=== PATIENT | female | born 1995 | race African-American/Black ===

== ENCOUNTER 2021-08-27 23:33 | Outpatient (CLI) | payer OTHER | END 2021-08-27 23:34 | disposition EMS.NT | LOC: EMS 23:33 | DX: O99.412 Diseases of the circulatory system complicating pregnancy, second trimester (principal); Z3A.20 20 weeks gestation of pregnancy ==

== ENCOUNTER 2021-08-28 00:43 | Outpatient (CLI) | payer OTHER ==
[2021-08-28 01:10] VITALS: BP 119/71
--- NOTE | 2021-08-28 01:40 | PROVIDER PROGRESS NOTE ---
- HPI Chief Complaint: Other (Heart racing for 30 minute. Patient states rom heart was racing and she was concerned so they called an ambulance to bring her to the hospital.) Current : Vital Signs Temperature 98.2 F 08/28/21 00:43 Heart Rate 72 08/28/21 00:43 Respiratory Rate 20 08/28/21 00:43 Blood Pressure 134/89 H 08/28/21 00:43 O2 Saturation 99 08/28/21 00:43 Temperature 98.2 F 08/28/21 01:02 Heart Rate 77 08/28/21 01:02 Respiratory Rate 20 08/28/21 01:02 Blood Pressure 119/71 08/28/21 01:02 O2 Saturation 100 08/28/21 01:00 Patient is 25yo at 21 weeks gestation. Patient moved to [facility] two weeks ago for the Lift. Patient was hoping to deliver here on the [place]. Patient denies every having any issues with her heart in the past. Patient has never experienced this sensation of heart racing. Patient is not feeling it now. Patient had Pre-Eclampsia with first and was induced and delivered at 36 weeks. Patient had Gestational Diabetes with 2nd . Patient had no complications with third . Patient has already had elevated 1 hour test with this and is needing to have 3hour test done. O VSS, Afebrile General: patient is resting on stretcher in no acute distress Chest: Clear to auscultation. Good breath sounds in all ferreira. No rales, wheezes or rhonchi. Abdomen: Soft, non-tender fundal height appropriate for gestational age. Extremities: No pedal or pretibial edema Heart tones are 134bpm EKG performed and appears normal A- IUP 20 03/21 with episode of Heart racing for 30 minutes, now not occurring P- Send to ED for further heart monitoring. Obstetrically cleared.
== END 2021-08-28 01:45 ==
LOC: WFO 00:43 → FBP 00:44 → WFO 01:45
PROVIDERS: ATTEND Obstetrics & Gynecology
DX: O26.892 Other specified pregnancy related conditions, second trimester (principal); R00.0 Tachycardia, unspecified; Z3A.21 21 weeks gestation of pregnancy
CPT/HCPCS: 93005; 99214

== ENCOUNTER 2021-08-28 01:36 | Emergency (ER) | payer OTHER ==
--- NOTE | 2021-08-28 02:22 | ED Physician Documentation ---
History of Present Illness - Stated complaint Stated Complaint: RAPID HR - Chief complaint Chief Complaint: Cardiac - History obtained from History obtained from: Patient - Additonal information Additional information: 25-year-old woman with history of anxiety, not currently on medications except for iron supplementation, at 21 weeks gestation, presents from the OB unit after initial evaluation for palpitations lasting about 30 minutes with this evening. Patient states that she normally stays up late and started to experience palpitations, lightheadedness, and shortness of breath that resolved on its own. She is currently asymptomatic. Denies headache, nausea, vision changes, chest pain, shortness of breath, palpitations. Does endorse some increased stress recently related to custody aguila over one of her children. Patient underwent obstetric evaluation and was cleared from an obstetric standpoint, sent here for telemetry monitoring. Review of Systems Ten Systems: 10 systems reviewed and negative Constitutional: denies: Fever, Chills Cardiac: reports: Palpitations. denies: Chest pain / pressure Respiratory: denies: Cough GI: denies: Nausea PD PAST MEDICAL HISTORY - Past Medical History Past Medical History: Yes - Past Surgical History Past Surgical History: Yes - Allergies Allergies/Adverse Reactions: Allergies Allergy/AdvReac Type Severity Reaction Status Date / Time No Known Drug Allergies Allergy Verified 08/28/21 01:59 - Social History Does the pt smoke?: No Smoking Status: Never smoker Does the pt drink ETOH?: No Does the pt have substance abuse?: No - Immunizations Immunizations are current?: Yes PD ED PE NORMAL - Vitals Vital signs reviewed: Yes - General General: Alert and oriented X 3, No acute distress, Well developed/nourished - HEENT HEENT: Atraumatic, PERRL, EOMI - Neck Neck: Supple, no meningeal sign - Cardiac Cardiac: RRR - Respiratory Respiratory: No respiratory distress, Clear bilaterally - Abdomen Abdomen: Non tender, Non distended - Derm Derm: Normal color, Warm and dry - Extremities Extremities: No deformity - Neuro Neuro: Alert and oriented X 3 - Psych Psych: Normal mood, Normal affect Results - Vitals Vitals: Vital Signs - 24 hr 08/28/21 01:51 Temperature 36.3 C L Heart Rate 66 Respiratory 18 Rate Blood Pressure 116/73 O2 Saturation 100 Oxygen O2 Source Room air PD MEDICAL DECISION MAKING - ED course ED course: Reviewed EKG done in OB which was unremarkable. no acute events on library monitor. patient to be dc'd home with outpatient counseling center director follow up. return precautions discussed. Departure - Departure Disposition: 01 Home, Self Care Clinical Impression: Palpitation Condition: Good Instructions: ED Palpitations Comments: You were seen in the emergency department and obstetric unit for heart palpitations. Your EKG was normal and after an hour of heart monitoring we didn't find any abnormalities. You should follow up with your counseling center director in clinic and return to the emergency department if you have any new or worsening symptoms or other concerns.
[2021-08-28 02:37] VITALS: BP 114/76
== END 2021-08-28 02:40 | disposition home or self-care (01) ==
LOC: ED 01:36
DX: O99.412 Diseases of the circulatory system complicating pregnancy, second trimester (principal); R00.2 Palpitations; R00.0 Tachycardia, unspecified; O26.892 Other specified pregnancy related conditions, second trimester; Z3A.21 21 weeks gestation of pregnancy
CPT/HCPCS: 93005; 99214; 99283; 99284

== ENCOUNTER 2021-09-15 10:51 | Outpatient (CLI) | payer OTHER ==
[2021-09-15 11:28] LABS: GTT GLUCOSE,FASTING 91 mg/dL (70-100)
== END 2021-09-15 10:52 | disposition home or self-care (01) ==
LOC: LAB 10:51
PROVIDERS: ATTEND Obstetrics & Gynecology
DX: O99.810 Abnormal glucose complicating pregnancy (principal)
CPT/HCPCS: 36415; 82951; 82952

== ENCOUNTER 2021-09-18 18:31 | Outpatient (CLI) | payer OTHER ==
--- NOTE | 2021-09-19 13:42 | Ultrasound Report ---
PROCEDURE: OB Detailed Eval INDICATIONS: SUPERVISION OF OUTSIDE/PRIOR DATING DATA: Last menstrual period (LMP): 04/05/2021. LMP-based estimated date of delivery (JF): 01/10/2022. First dating scan (date and location): 09/18/2021. Estimated date of delivery (JF) from first dating scan: 01/05/2022. TECHNIQUE: Real-time scanning was performed of the fetus, with image documentation and biometric measurements. COMPARISON: None. FINDINGS: General: A single living intrauterine gestation is present. Presentation: Vertex Placenta: Placental position is anterior, without previa. Amniotic fluid index: 16.0 cm, within normal limits for gestational age. Largest pocket 4.7 cm heart rate: 131 beats per minute. Maternal cervical canal: 3.6 cm long; normal length is 2.5 cm or more. biometrics: Biparietal diameter: 5.9 cm 24 weeks 1 day Head circumference: 22.9 cm 23 weeks 6 days Abdominal circumference: 20.0 cm 24 weeks 4 days Femur length: 4.47 m 24 weeks 4 days Estimated gestational age from initial scan: not applicable. Composite gestational age from present scan: 24 weeks 3 days Estimated weight and percentile: 698 g per centimeter which unable to be calculated Measurement variability in biometric dating: +/- 10 days from 12-20 weeks gestation, +/- 2 weeks from 20-30 weeks gestation, +/- 3 weeks at 30 weeks gestation or later. Anatomic survey: Neuro: Ventricles are normal at less than 10 mm. Cisterna magna is normal at 3-11 mm. Cerebellum i s normal in size and morphology. Nuchal skin fold: Normal at less than 6 mm between 14 and 20 weeks gestational age. Face: Nose and lips, facial profile are normal. Spine: No evidence for spina bifida. Heart: 4-chambered heart is present, with normal ventricular outflow tracts. Diaphragm: Diaphragm is intact. Stomach: Left-sided stomach is present. Kidneys: No hydronephrosis. Normal is less than 5 mm in 2nd trimester, less than 7 mm in 3rd trimester. Cord: 3 vessel cord has orthotopic insertion. Bladder: Normal in size. Extremities: All 4 extremities are visualized. IMPRESSION: Single live intrauterine with ultrasound gestational age of 24 weeks 3 days. Anatomy is within normal limits. Reviewed by: Shalini Gooden MD on 09/19/2021 1:41 PM PDT Approved by: Shalini Gooden MD on 09/19/2021 1:41 PM PDT Station ID: [id number]
== END 2021-09-18 18:32 | disposition home or self-care (01) ==
LOC: DI 18:31
PROVIDERS: ATTEND Obstetrics & Gynecology
DX: Z34.82 Encounter for supervision of other normal pregnancy, second trimester (principal); Z3A.24 24 weeks gestation of pregnancy

== ENCOUNTER 2021-12-12 12:17 | Outpatient (CLI) | payer OTHER ==
--- NOTE | 2021-12-12 15:23 | Ultrasound Report ---
PROCEDURE: OB F/U or Repeat INDICATIONS: SUPERVISION NORMAL PREGANCY, OBESITY OUTSIDE/PRIOR DATING DATA: Last menstrual period (LMP): 04/05/2021. LMP-based estimated date of delivery (JF): 01/10/2022. TECHNIQUE: Real-time scanning was performed of the fetus, with image documentation and biometric measurements. Endovaginal scanning: None COMPARISON: 09/18/2021 FINDINGS: General: A single living intrauterine gestation is present. Presentation: Vertex Placenta: Placental position is anterior, without previa. Amniotic fluid index: 12.7 cm, normal for gestational age. heart rate: 135 beats per minute. Maternal cervical canal: Not well seen biometrics: Biparietal diameter: 8.9 cm, 35 week 6 day Head circumference: 31.5 cm, 35 week 2 day Abdominal circumference: 32.6 cm, 36 week 4 day Femur length: 7.1 cm, 36 week 3 day Estimated gestational age from initial scan: not applicable. Composite gestational age from present scan: 37 week 6 day Estimated weight and percentile: 2909 g, 47th percentile Measurement variability in biometric dating: +/- 10 days from 12-20 weeks gestation, +/- 2 weeks from 20-30 weeks gestation, +/- 3 weeks at 30 weeks gestation or more. Other: Not applicable. IMPRESSION: Single live intrauterine consistent with 37 week 6 day gestation by current ultrasound Reviewed by: Hever Espino MD on 12/12/2021 2:22 PM AK Approved by: Hever Espino MD on 12/12/2021 2:22 PM AKST Station ID: [id number]
== END 2021-12-12 12:18 | disposition home or self-care (01) ==
LOC: DI 12:17
PROVIDERS: ATTEND Obstetrics & Gynecology
DX: O99.213 Obesity complicating pregnancy, third trimester (principal); Z3A.37 37 weeks gestation of pregnancy

== ENCOUNTER 2021-12-19 08:00 | Outpatient (CLI) | payer OTHER | END 2021-12-19 23:59 | disposition home or self-care (01) | LOC: LAB.WC 08:00 | PROVIDERS: ATTEND Obstetrics & Gynecology | DX: Z36.85 Encounter for antenatal screening for Streptococcus B (principal) | CPT/HCPCS: 87797 ==

== ENCOUNTER 2021-12-26 10:55 | Outpatient (CLI) | payer OTHER ==
[2021-12-26 23:38] LABS: BACTERIAL VAGINOSIS DNA NEGATIVE (NEGATIVE); CANDIDA GLABRATA DNA NEGATIVE (NEGATIVE); CANDIDA GROUP DNA NEGATIVE (NEGATIVE); CANDIDA KRUSEI DNA NEGATIVE (NEGATIVE); TRICHOMONAS VAGINALIS DNA NEGATIVE (NEGATIVE)
== END 2021-12-26 23:59 | disposition home or self-care (01) ==
LOC: LAB 10:55
PROVIDERS: ATTEND Obstetrics & Gynecology
DX: N76.0 Acute vaginitis (principal)
CPT/HCPCS: 87661; 87801

== ENCOUNTER 2022-01-02 17:08 | Inpatient (IN) | payer OTHER ==
[2022-01-02] MEDS ORDERED: SODIUM CHLORIDE FLUSH 0.9% 10 ML SYRINGE IVP PRN ×2 (17:23→18:46)
[2022-01-02] MEDS ORDERED: SODIUM CHLORIDE FLUSH 0.9% 10 ML SYRINGE IVP SCH ×2 (18:00→19:00)
[2022-01-02 18:29] LABS: BASOPHILS % (AUTO) 0.4 %; EOSINOPHILS # (AUTO) 0.1 10^3/uL (0.0-0.7); EOSINOPHILS % (AUTO) 0.9 %; HCT - HEMATOCRIT 26.1 % (37.0-47.0); HGB - HEMOGLOBIN 8.5 g/dL (12.0-16.0); LYMPHOCYTES # (AUTO) 1.4 10^3/uL (1.5-3.5); LYMPHOCYTES % (AUTO) 24.9 %; MEAN CORPUSCULAR HEMOGLOBIN 26.4 pg (27.0-31.0); MEAN CORPUSCULAR HGB CONC 32.6 g/dL (32.0-36.0); MEAN CORPUSCULAR VOLUME 81.1 fL (81.0-99.0); MEAN PLATELET VOLUME 12.7 fL (7.9-10.8); MONOCYTES # (AUTO) 0.6 10^3/uL (0.0-1.0); MONOCYTES % (AUTO) 11.1 %; NEUTROPHILS # (AUTO) 3.5 10^3/uL (1.5-6.6); NRBC ABSOLUTE COUNT (AUTO) 0.02 x10^3/uL; NUCLEATED RED BLOOD CELLS AUTO 0.4 /100WBC; PLT - PLATELET COUNT 185 10^3/uL (130-450); RED BLOOD COUNT 3.22 10^6/uL (4.20-5.40); RED CELL DISTRIBUTION WIDTH 12.6 % (12.0-15.0); WHITE BLOOD COUNT 5.7 x10^3/uL (4.8-10.8)
[2022-01-02 18:30] LABS: ALBUMIN/GLOBULIN RATIO 0.9 (1.0-2.2); BILIRUBIN,TOTAL 0.5 mg/dL (0.2-1.0); CALCIUM 8.3 mg/dL (8.5-10.3); CREATININE 0.6 mg/dL (0.4-1.0); POTASSIUM 3.6 mmol/L (3.5-5.0); TOTAL PROTEIN 6.5 g/dL (6.7-8.2)
--- NOTE | 2022-01-02 18:44 | HISTORY & PHYSICAL EXAMINATION ---
Admit History - Visit Reason Visit Reason: Contractions, Other (Presents for induction of labor for gestation hypertension) - : 8 Parity: 3 Premature: 1 : 4 Care: positive: [facility] Risk/History: positive: labor <37 weeks, Gestational diabetes, induced HTN, Pre-eclampsia, Labor induction, Premature rupture membrane, High risk, Other (BMI 42 Hx of sleeve gastrectomy 2018, no other surgeries) Complications This : positive: induced HTN, Other (Failed 1h GTT Monitor BG and this was discontinued as values were within range) Smoking Status: Never smoker - Mother's Labs Mother's Blood Type: positive: B Mother's RH: positive: Positive GBS: positive: Group B Step Negative Rubella Status: positive: Immune - Other Maternal History Other Maternal History: US reviewed Placenta anterior Meds/Allgy - Allergies Allergies/Adverse Reactions: Allergies Allergy/AdvReac Type Severity Reaction Status Date / Time No Known Drug Allergies Allergy Verified 08/28/21 01:59 Review of Systems - All Other Systems All Other Systems: reports: Reviewed and negative Physical - Abdominal Exam Vital Signs: Temp Pulse Resp BP Pulse Ox 99.1 F 78 17 148/97 H 01/02/22 17:22 01/02/22 17:22 01/02/22 17:22 01/02/22 17:22 Contraction Intensity: positive: Mild to moderate Uterine Resting Tone: positive: Soft - Monitoring Heart Rate Baseline: 130 Strip Review: positive: Category I - Presentation Presentation: positive: Vertex - Vaginal Exam Membranes: positive: Membranes intact Dilation (in cm): 4 Effacement (%): 50 Station: positive: -3 Cervical Position: positive: Midposition - Speculum Exam Speculum Exam Performed: positive: No - Other Notes Labor Progress Note/Additional Text: EFW 3800g, cephalic Plan for Labor - Plan For Labor I expect patient to be DC'd or transferred within 96 hours.: Yes Plan for Labor: 26yo at 38.6w by7w US presenting for scheduled IOL for gestational hypertension - Admit to FBP - 4cm on admission, will start Pitocin induction - Desires epidural, may have prn - Anticipate - GHTN: labs ordered, start labetalol 300mg q8h, monitor BP
[2022-01-02] MEDS ORDERED: OXYTOCIN 10 UNIT/ML VIAL IM PRN (18:46)
[2022-01-02] MEDS ORDERED: ACETAMINOPHEN 500 MG TABLET PO PRN (18:46)
[2022-01-02] MEDS ORDERED: METHYLERGONOVINE 0.2 MG/ML VIAL IM PRN (18:46)
[2022-01-02] MEDS ORDERED: LABETALOL 20 MG/4 ML SYRINGE IVP PRN ×2 (18:46)
[2022-01-02] MEDS ORDERED: miSOPROStoL 200 MCG TABLET BC PRN (18:46)
[2022-01-02] MEDS ORDERED: miSOPROStoL 200 MCG TABLET PR PRN (18:46)
[2022-01-02] MEDS ORDERED: OXYTOCIN/SODIUM CHLORIDE 500 ML IV PRN (18:46)
[2022-01-02] MEDS ORDERED: LIDOCAINE-MPF 1% 30 ML VIAL ID PRN (18:46)
[2022-01-02] MEDS ORDERED: TRANEXAMIC ACID IN NACL 1,000 MG/100 ML BAG IV PRN (18:46)
[2022-01-02] MEDS ORDERED: TERBUTALINE 1 MG/ML VIAL SUBQ PRN (18:46)
[2022-01-02] MEDS ORDERED: hydrALAZINE INJ 20 MG/ML VIAL IVP PRN (18:46)
[2022-01-02] MEDS ORDERED: CARBOPROST TROMETHAMINE 250 MCG/ML AMP IM PRN (18:46)
[2022-01-02 18:54] LABS: CREATININE,URINE 303.7 mg/dL; PROTEIN/CREATININE RATIO,URINE 0.1 (<=0.2)
[2022-01-02] MEDS ORDERED: OXYTOCIN/SODIUM CHLORIDE 500 ML IV SCH ×2 (19:00)
[2022-01-02] MEDS: LABETALOL 100 MG TABLET PO SCH (19:42)
[2022-01-02] MEDS: LACTATED RINGERS 1,000 ML IV SCH (19:44)
[2022-01-02] MEDS ORDERED: ROPIVACAINE 0.2% 200 MG/100 ML BAG EP ONE (21:49)
--- NOTE | 2022-01-02 22:38 | ANESTHESIA ---
Pre-Anesthesia VS, & Labs - Diagnosis labor induction - Procedure epidural Vital Signs: Temp Pulse Resp BP Pulse Ox 37.3 C 78 17 148/97 H 01/02/22 17:22 01/02/22 17:22 01/02/22 17:22 01/02/22 17:22 Height: 5 ft 5 in Weight (kg): 117.027 kg Body Mass Index: 42.9 BMI Classification: Morbidly Obese - NPO >8 hours - Is Patient ?: Yes - Lab Results Current Lab Results: Laboratory Tests 01/02/22 18:00: WBC 5.7, RBC 3.22 L, Hgb 8.5 L, Hct 26.1 L, MCV 81.1, MCH 26.4 L , MCHC 32.6, RDW 12.6, Plt Count 185, MPV 12.7 H, Neut # (Auto) 3.5, Lymph # (Auto) 1.4 L, Cooper # (Auto) 0.6, Eos # (Auto) 0.1, Baso # (Auto) 0.0, Absolute Nucleated RBC 0.02, Nucleated RBC % 0.4 01/02/22 18:00: Blood Type B POSITIVE, Antibody Screen NEGATIVE 01/02/22 18:00: Sodium 135, Potassium 3.6, Chloride 104, Carbon Dioxide 22, Anion Gap 9.0, BUN 8, Creatinine 0.6, Estimated GFR (MDRD) 146, Glucose 73, Calcium 8.3 L, Total Bilirubin 0.5, AST 23, ALT 19, Alkaline Phosphatase 103, Total Protein 6.5 L, Albumin 3.0 L, Globulin 3.5, Albumin/Globulin Ratio 0.9 L Fish Bones: 01/02/22 18:00 01/02/22 18:00 Home Medications and Allergies Active Medications Acetaminophen (Acetaminophen 500 Mg Tablet) 1,000 mg PO Q8H PRN PRN Reason: Pain or Fever > 38C (100.4F) Last Admin: 01/02/22 19:18 Dose: 1,000 mg Carboprost Tromethamine (Carboprost Tromethamine 250 Mcg/Ml Amp) 250 mcg IM .ONCE PRN PRN Reason: Hemorrhage Hydralazine HCl (Hydralazine Inj 20 Mg/Ml Vial) 10 mg IVP .ONCE PRN; Protocol PRN Reason: Step 9 of Labetalol protocol Stop: 01/07/22 18:49 Oxytocin/Sodium Chloride (Pitocin/Sodium Chloride) 500 mls @ 999 mls/hr IV PRN PRN; Protocol PRN Reason: POST- HEMORR PREVENTION Tranexamic Acid (Tranexamic 1,000 Mg/100ml-Nacl) 1,000 mg in 100 mls @ 600 mls/hr IV Q30M PRN PRN Reason: EBL >1200mL and within 3hr Lactated Ringer's (Lr) 1,000 mls @ 125 mls/hr IV .Q8H TYSON Last Admin: 01/02/22 19:44 Dose: 125 mls/hr Oxytocin/Sodium Chloride (Pitocin/Sodium Chloride) 500 mls @ 2 mls/hr IV TITR TYSON; Protocol Last Admin: 01/02/22 19:53 Dose: 2 milliunit/min, 2 mls/hr Labetalol HCl (Labetalol 100 Mg Tablet) 300 mg PO Q8H TYSON Last Admin: 01/02/22 19:42 Dose: 300 mg Labetalol HCl (Labetalol 20 Mg/4 Ml Syringe) 20 - 80 mg IVP Q10M PRN; Protocol PRN Reason: SBP> or= 160 OR DBP> or= 110 Labetalol HCl (Labetalol 20 Mg/4 Ml Syringe) 20 mg IVP .ONCE PRN; Protocol PRN Reason: SBP> or= 160 OR DBP> or= 110 Lidocaine HCl (Lidocaine-Mpf 1% 30 Ml Vial) 30 ml ID ONCE PRN PRN Reason: PERINEAL REPAIR Stop: 01/03/22 18:46 Methylergonovine Maleate (Methylergonovine 0.2 Mg/Ml Vial) 0.2 mg IM .ONCE PRN PRN Reason: Hemorrhage Misoprostol (Misoprostol 200 Mcg Tablet) 600 mcg BC .ONCE PRN PRN Reason: Hemorrhage Misoprostol (Misoprostol 200 Mcg Tablet) 800 mcg CO .ONCE PRN PRN Reason: Hemorrhage Oxytocin (Oxytocin 10 Unit/Ml Vial) 10 unit IM .ONCE PRN PRN Reason: Step One if no IV access. Sodium Chloride (Sodium Chloride Flush 0.9% 10 Ml Syringe) 10 ml IVP PRN PRN PRN Reason: NEEDED PER PROVIDER ORDERS Sodium Chloride (Sodium Chloride Flush 0.9% 10 Ml Syringe) 10 ml IVP Q8H TYSON Sodium Chloride (Sodium Chloride Flush 0.9% 10 Ml Syringe) 10 ml IVP PRN PRN PRN Reason: NEEDED PER PROVIDER ORDERS Sodium Chloride (Sodium Chloride Flush 0.9% 10 Ml Syringe) 10 ml IVP Q8H TYSON Terbutaline Sulfate (Terbutaline 1 Mg/Ml Vial) 0.25 mg SUBQ ONCE PRN PRN Reason: Tachystole Stop: 01/07/22 18:45 Allergies/Adverse Reactions: Allergies Allergy/AdvReac Type Severity Reaction Status Date / Time No Known Drug Allergies Allergy Verified 08/28/21 01:59 Anes History & Medical History - Anesthetic History Anesthesia Complications: reports: No previous complications - Medical History Cardiovascular: reports: None Pulmonary: reports: None Blood Disorders: reports: Anemia Smoking Status: Never smoker History of Cancer?: No - Obstetrical History : 8 Parity: 3 Events: reports: labor <37 weeks, Gestational diabetes, P regnancy induced HTN, Pre-eclampsia, Labor induction, Premature rupture membrane, High risk, Other (BMI 42 Hx of sleeve gastrectomy 2018, no other surgeries) Complications: reports: induced HTN, Other (Failed 1h GTT Monitor BG and this was discontinued as values were within range) Exam General: Alert, Oriented x3 Dental: WNL Mouth Opening: Greater than 4 Fingerbreadths Neck Mobility: Normal Respiratory: Lungs clear Cardiovascular: Regular rate Plan Anesthesia Type: Epidural Consent for Procedure(s) Verified and Reviewed: Yes Code Status: Attempt Resuscitation ASA classification: 2-Mild systemic disease Is this case an emergency?: No
[2022-01-02] MEDS ORDERED: METOCLOPRAMIDE 10 MG/2 ML VIAL IVP PRN (22:39)
[2022-01-02] MEDS ORDERED: ePHEDrine 50 MG/ML VIAL IVP PRN (22:39)
[2022-01-02] MEDS ORDERED: diphenhydrAMINE INJ 50 MG/ML VIAL IVP PRN (22:39)
[2022-01-02] MEDS ORDERED: NALBUPHINE 10 MG/ML AMP IVP PRN (22:39)
[2022-01-02] MEDS ORDERED: NALOXONE 0.4 MG/ML VIAL IVP PRN (22:39)
[2022-01-02] MEDS ORDERED: ROPIVACAINE 0.2% 200 MG/100 ML BAG EP PRN (22:39)
[2022-01-02] MEDS ORDERED: ONDANSETRON 4 MG/2 ML VIAL IVP PRN (22:39)
--- NOTE | 2022-01-02 22:52 | PROVIDER PROGRESS NOTE ---
Labor Progress Note - Uterine Monitoring Contraction Frequency (min/apart): 4m Contraction Intensity: positive: Moderate Uterine Resting Tone: positive: Soft - Monitoring Monitor Mode: positive: External ultrasound Heart Rate Baseline: 130s Heart Rate Variability: positive: Moderate (6-25 bmp) Accelerations: positive: Present, 15x15 Decelerations: positive: None Strip Review: positive: Category I - Vaginal Exam Dilation (in cm): 6 Effacement (%): 100 Station: -2 Cervical Position: Anterior - Labor Progress Note Labor Progress Note/Additional Text: AROM 1045, clear Anticipate
[2022-01-03] MEDS: LACTATED RINGERS 1,000 ML IV SCH (00:41)
[2022-01-03] MEDS ORDERED: OXYTOCIN/SODIUM CHLORIDE 500 ML IV PRN (00:53)
--- NOTE | 2022-01-03 01:02 | DELIVERY NOTE ---
Delivery Note - Labor Labor: positive: Induced by oxytocin - Delivery Method Delivery Method: positive: Spontaneous vaginal delivery - Presentation Presentation: positive: Vertex, LUIS CARLOS - left occiput anterior - Nuchal Cord Nuchal Cord: positive: None - Amniotic Fluid Description Amniotic Fluid Description: positive: Clear - Episiotomy Type Episiotomy Type: positive: None - Laceration Laceration: positive: None - Delivery Outcome Delivery Outcome: positive: Livebirth - [place] : positive: Placed in direct skin contact with mother [place] sex: positive: Female - Cord Cord: positive: 3 vessels - Placenta Placenta: positive: Intact, Spontaneous - Estimated Blood Loss Estimated Blood Loss (in cc): 100 - Post Delivery Events Post Delivery Events: positive: No post delivery events - Delivery Comments (Free Text/Narrative) Delivery Comments (Free Text/Narrative): Evaluated patient due to feeling pressure. 10/100/+2. Pushing with good efforts. Head delivered LUIS CARLOS. Anterior shoulder delivered followed by body. placed on mother's abdomen. Delayed cord clamping. Fundus firm. Vagina and perineum inspected- no lacerations. Family bonding at bedside.
[2022-01-03] MEDS ORDERED: SODIUM CHLORIDE FLUSH 0.9% 10 ML SYRINGE IVP PRN (04:27)
[2022-01-03] MEDS: LABETALOL 100 MG TABLET PO SCH ×3 (04:32→17:43)
[2022-01-03] MEDS: IBUPROFEN 600 MG TABLET PO SCH ×3 (04:35→18:16)
[2022-01-03] MEDS: ACETAMINOPHEN 500 MG TABLET PO PRN ×3 (04:37→22:23)
[2022-01-03] MEDS ORDERED: DOCUSATE SODIUM 100 MG CAPSULE PO SCH (09:00)
[2022-01-03] MEDS: oxyCODONE 5 MG TABLET PO PRN ×2 (09:16→16:55)
[2022-01-03] MEDS: DOCUSATE SODIUM 100 MG CAPSULE PO SCH (20:39)
[2022-01-04] MEDS: IBUPROFEN 600 MG TABLET PO SCH ×2 (00:15→06:22)
[2022-01-04] MEDS: oxyCODONE 5 MG TABLET PO PRN ×2 (01:10→07:56)
[2022-01-04] MEDS: ACETAMINOPHEN 500 MG TABLET PO PRN (06:22)
[2022-01-04] MEDS: DOCUSATE SODIUM 100 MG CAPSULE PO SCH (07:57)
[2022-01-04] MEDS ORDERED: FERROUS SULFATE 325 MG TABLET PO SCH (08:00)
[2022-01-04 08:48] VITALS: BP 127/79
--- NOTE | 2022-01-04 09:02 | Discharge Plan ---
Discharge Plan Problem Reviewed?: Yes Disposition: Home, Self Care Condition: Good Prescriptions: oxyCODONE [Roxicodone] 5 mg PO Q6HR PRN 3 Days #7 tablet PRN Reason: Pain Labetalol [Trandate] 300 mg PO Q8H 30 Days #60 tablet Diet: Regular Activity Restrictions: Additional Comments (Pelvic rest until bleeding stops, no driving while taking narcotics, no lifting greater than 20 lbs) Shower Restrictions: No Driving Restrictions: Yes (no driving while taking narcotics) Weight Bearing: Full Weight Instruction Topics: Vaginal After, Preeclampsia, Preg Anemia No Smoking: If you smoke, Please STOP! Call for help. Follow-up with: Ruperto Biggs MD [Provider Admit Priv/Credential] -
--- NOTE | 2022-01-04 09:11 | DISCHARGE SUMMARY ---
"Discharge Summary Admit Date: 01/02/22 Discharge Date: 01/04/22 Discharging Provider: Roxy Mcdowell DO Code Status: Attempt Resuscitation - DIAGNOSES Admission Diagnoses: Gestational hypertension Anemia in Discharge Diagnoses with Status of Each Condition: Gestational hypertension, improved Anemia in , stable - HPI History of Present Illness: 26yo admitted on 01/02/21 at 38.6w for planned IOL for newly diagnosed gestational hypertension. - CONSULTS | PROCEDURES Consultations: Anesthesia Procedures: Epidural - HOSPITAL COURSE Hospital Course: 26yo admitted on 01/02/21 at 38.6w for planned IOL for newly diagnosed gestational hypertension. On admission she was 4cm and Pitocin augmentation was started. She progressed and received an epidural. AROM performed and she progressed to 10cm. Uncomplicated . She is recovering well. She has been having strong afterbirth pains requiring oxycodone in addition to ibuprofen and acetaminophen. Appropriate lochia. Ambulating. Voiding. Tolerating po. and formula supplementing. Mood is good. She would like to go home today. She denies headache, visual changes or upper abdominal pain. Denies lightheadedness or dizziness. Labetalol was ordered during admission but was held due to low BP. Will prescribe decreased frequency of labetalol. She was noted to be anemic on admission. We reviewed care and preeclampsia precautions. She should continue vitamins and iron. Prescription for labetalol and oxycodine given. She should check her BP at home and will follow up with primary OB this week. - ALLERGIES Allergies/Adverse Reactions: Allergies Allergy/AdvReac Type Severity Reaction Status Date / Time No Known Drug Allergies Allergy Verified 08/28/21 01:59 - MEDICATIONS Home Medications: Ambulatory Orders Medication Instructions Recorded Confirmed Acetaminophen [Tylenol] 1,000 mg PO Q8H PRN tablet 01/04/22 Docusate Sodium 100Mg Capsule 200 mg PO BID 01/04/22 [Colace 100Mg Capsule] Ferrous Sulfate [Feosol] 325 mg PO DAILYWM tablet 01/04/22 Ibuprofen [Motrin] 600 mg PO Q6H tablet 01/04/22 Labetalol [Trandate] 300 mg PO Q8H 30 Days #60 tablet 01/04/22 oxyCODONE [Roxicodone] 5 mg PO Q6HR PRN 3 Days #7 tablet 01/04/22 - PHYSICAL EXAM AT DISCHARGE General Appearance: positive: No acute distress Respiratory: positive: No respiratory distress Cardiovascular: positive: Regular rate & rhythm Abdomen: positive: Non-tender Skin: positive: Color nml Extremities: positive: Non-tender Neurologic/Psychiatric: positive: Oriented x3 - LABS Result Diagrams: 01/02/22 18:00 01/02/22 18:00 - QUALITY (Female Hip Fx Only) Was patient sent home on osteoporosis medication?: No - FOLLOW UP Follow Up: Follow up by 3d to check BP - TIME SPENT Time Spent in Discharge (Minutes): 25"
--- NOTE | 2022-01-04 16:07 | Labor Flowsheet ---
Labor Flowsheet Datetime Report Generated by CPN: 01/04/2022 16:07 Datetime: 01/04/2022 08:44 VITAL SIGNS NBP Sys/Ember/Mean (mmHg): 127 : 79 : 91 Pulse: 68 Datetime: 01/04/2022 00:10 SpO2 (%): 100 Datetime: 01/03/2022 02:40 Membranes Ruptured Date/Time: 01/02/2022 22:41 Datetime: 01/03/2022 01:50 Temperature (C): 37.5 Temperature Route: Oral PAIN Pain Scale: 0 Pain Presence: None/Denies Datetime: 01/03/2022 00:46 Stage of : Recovery Medication Comments: Pitocin bolus initiated Datetime: 01/03/2022 00:45 LaborFlag: Labor Datetime: 01/03/2022 00:32 Patient Care Comments: 100cc yellow urine in ambriz Datetime: 01/03/2022 00:30 UTERINE ACTIVITY Monitor Mode: External Frequency (min): 2-3 Quality: Moderate Duration (sec): 70-90 Pattern: Normal: <= 5 Contractions in 10 Minutes Resting Tone (Palpate): Relaxed Contraction Comments: set up for pushing with stirups ASSESSMENT A Monitor Mode: Telemetry FHR Baseline Rate : 130 FHR Baseline Changes: No Baseline Change Variability: Moderate 6-25 bpm Accelerations: 15X15 Decelerations: None Category: Category I Datetime: 01/03/2022 00:19 Respirations: 20 Datetime: 01/03/2022 00:14 Amniotic Fluid Color: Clear Amniotic Fluid Amount: Large Amniotic Fluid Odor: Normal Hygiene: Underpad Changed Datetime: 01/03/2022 00:00 Patient Position/Activity: High Fowlers Datetime: 01/02/2022 23:58 VAGINAL EXAM Dilatation (cm): pt allowed to labor down Datetime: 01/02/2022 23:56 Effacement (%): 100 Station: 0 Exam by: Dr Mcdowell Vaginal Exam Comments: instructed on pushing MATERNAL ASSESSMENT Nausea/Vomiting: Denies Provider Reviewed Strip: Yes Datetime: 01/02/2022 23:30 Monitor Interventions for FHR: Ultrasound Adjusted Pain Type: Dull Pain Location: Head Pain Relief Measures: Comfort Measures Pain Assessment Comments: Pain score 0 for contractions Datetime: 01/02/2022 23:14 Antiemetics/Antacids: Zofran (mg) @ 4 Datetime: 01/02/2022 23:00 Actions for Decelerations: Provider Notified I/O Interventions: Ambriz Cath Inserted Datetime: 01/02/2022 22:45 Pitocin Checklist: At Least 1 Acceleration of 15 bpm x 15 Seconds in 30 Minutes or Adequate Variabi lity; No More than 1 Late Deceleration Occurred in Past 30 Minutes; No More than 2 Variable Decelerat ions > 60 Seconds in Duration and decreasing >60 bpm in 30 minutes; No More than 5 Uterine Contractio ns in 10 Minutes for any 20 Minute Interval; Uterus Palpates Soft between Contractions Datetime: 01/02/2022 22:41 Membrane Status: Ruptured Membranes Rupture Method: Artificial Datetime: 01/02/2022 22:39 MEDICATIONS Pitocin (milliunits): Increased to @ 6 Datetime: 01/02/2022 22:15 Epidural Procedure: Loading Dose Epidural Procedure Other: Pump Started Datetime: 01/02/2022 22:02 Epidural Positioning: Sitting Datetime: 01/02/2022 22:00 Comments: Indetriminate baseline, interrupted tracing due to pateint positioning. RN at bedside. FHR ausculated periodically 130-140 Datetime: 01/02/2022 21:47 ANESTHESIA Anesthesia Plans: Epidural Datetime: 01/02/2022 21:43 PROCEDURE TIME OUT Procedure Verify: Accurate Procedure Consent Form Datetime: 01/02/2022 21:22 PATIENT CARE IV/Blood Work: IV Bolus Started Datetime: 01/02/2022 21:16 Anesthesia Comments: Danna Aube, SERVICE TECH/WELDER contacted for patient epidural request Datetime: 01/02/2022 21:13 Monitor Interventions for UA: [place] Adjusted COMMUNICATION Communication: Provider at Bedside Communication Comments: Plan for epidural placement (per patient request) and then AROM Datetime: 01/02/2022 20:02 Pain Coping: Talking Through Contractions
== END 2022-01-04 14:00 | disposition home or self-care (01) | DRG 806 ==
LOC: WFO 17:08 → FBP 17:11 → WFO 17:22 → FBP 17:23
PROVIDERS: ADMIT Obstetrics & Gynecology; ATTEND Obstetrics & Gynecology
PROC: 10907ZC Drainage of Amniotic Fluid, Therapeutic from Products of Conception, Via Natural or Artificial Opening (ICD-10-PCS; principal; 2022-01-02)
PROC: 10E0XZZ Delivery of Products of Conception, External Approach (ICD-10-PCS; 2022-01-03)
DX: O13.4 Gestational [pregnancy-induced] hypertension without significant proteinuria, complicating childbirth (principal); O99.355 Diseases of the nervous system complicating the puerperium; Z37.0 Single live birth; O99.02 Anemia complicating childbirth; Z3A.38 38 weeks gestation of pregnancy; O99.214 Obesity complicating childbirth; E66.01 Morbid (severe) obesity due to excess calories; G89.18 Other acute postprocedural pain; Z86.32 Personal history of gestational diabetes
CPT/HCPCS: 80053; 82570; 84156; 85025; 86850; 86900; 86901; A9270; J7120

== ENCOUNTER 2022-01-07 14:17 | Inpatient (IN) | payer OTHER ==
[2022-01-07] MEDS ORDERED: LABETALOL 100 MG TABLET PO STA (14:30)
--- NOTE | 2022-01-07 14:44 | ED Physician Documentation ---
History of Present Illness - Stated complaint Stated Complaint: HIGH BP - Chief complaint Chief Complaint: General - History obtained from History obtained from: Patient - History of Present Illness Pain level max: 0 Pain level now: 0 - Additonal information Additional information: Patient is a 26-year-old female who is 3 days . Vaginal delivery. Complicated by -induced hypertension. She was prescribed labetalol 300 mg p.o. 3 times daily. She states she last took this yesterday. Went for a follow-up OB appointment today, found to have elevated blood pressure in the clinic and sent here for evaluation. Patient is asymptomatic. Her last dose of labetalol was yesterday afternoon. No headache, no nausea. No vomiting. No seizure activity. Review of Systems Ten Systems: 10 systems reviewed and negative Constitutional: denies: Fever, Chills Throat: denies: Sore throat GI: denies: Vomiting, Diarrhea Musculoskeletal: denies: Neck pain, Back pain Neurologic: denies: Headache PD PAST MEDICAL HISTORY - Past Medical History Cardiovascular: None Respiratory: None - Past Surgical History Past Surgical History: Yes - Present Medications Home Medications: Ambulatory Orders Medication Instructions Recorded Confirmed Acetaminophen [Tylenol] 1,000 mg PO Q8H PRN tablet 01/04/22 01/07/22 Docusate Sodium 100Mg Capsule 200 mg PO BID 01/04/22 01/07/22 [Colace 100Mg Capsule] Ferrous Sulfate [Feosol] 325 mg PO DAILYWM tablet 01/04/22 01/07/22 Ibuprofen [Motrin] 600 mg PO Q6H tablet 01/04/22 01/07/22 Labetalol [Trandate] 300 mg PO Q8H 30 Days #60 tablet 01/04/22 01/07/22 oxyCODONE [Roxicodone] 5 mg PO Q6HR PRN 3 Days #7 tablet 01/04/22 01/07/22 - Allergies Allergies/Adverse Reactions: Allergies Allergy/AdvReac Type Severity Reaction Status Date / Time No Known Drug Allergies Allergy Verified 01/07/22 14:26 - Social History Does the pt smoke?: No Smoking Status: Never smoker Does the pt drink ETOH?: No Does the pt have substance abuse?: No - Immunizations Immunizations are current?: Yes PD ED PE NORMAL - Vitals Vital signs reviewed: Yes - General General: Alert and oriented X 3, No acute distress - HEENT HEENT: PERRL, Moist mucous membranes - Neck Neck: Supple, no meningeal sign - Cardiac Cardiac: RRR, Strong equal pulses - Respiratory Respiratory: No respiratory distress, Clear bilaterally - Abdomen Abdomen: Soft, Non tender, Non distended - Derm Derm: Warm and dry - Extremities Extremities: Other (1+ BLE edema) - Neuro Neuro: Alert and oriented X 3 - Psych Psych: Normal mood, Normal affect Results - Vitals Vitals: Vital Signs - 24 hr 01/07/22 01/07/22 14:23 14:56 Temperature 36.7 C Heart Rate 64 73 Respiratory 16 16 Rate Blood Pressure 160/105 H 167/117 H O2 Saturation 100 100 Oxygen O2 Source Room air - Labs Labs: Laboratory Tests 01/07/22 01/07/22 14:40 14:40 WBC 5.7 RBC 3.00 L Hgb 7.9 L Hct 25.1 L MCV 83.7 MCH 26.3 L MCHC 31.5 L RDW 13.2 Plt Count 216 MPV 11.1 H Neut # (Auto) 3.7 Lymph # (Auto) 1.[address] # (Auto) 0.5 Eos # (Auto) 0.1 Baso # (Auto) 0.0 Absolute Nucleated RBC 0.00 Nucleated RBC % 0.0 Sodium 136 Potassium 4.1 Chloride 104 Carbon Dioxide 25 Anion Gap 7.0 BUN 10 Creatinine 0.7 Estimated GFR (MDRD) 123 Glucose 75 Calcium 8.3 L Magnesium 2.0 Total Bilirubin 0.5 AST 27 ALT 24 Alkaline Phosphatase 77 Total Protein 6.2 L Albumin 3.0 L Globulin 3.2 Albumin/Globulin Ratio 0.9 L PD MEDICAL DECISION MAKING - ED course Complexity details: reviewed results, re-evaluated patient, considered d ifferential, d/w patient, d/w internet marketing consultant ED course: Discussed the case with Dr. Biggs, on-call for OB. He recommends 4 g IV magnesium and he will admit the patient for further care. Patient continues to be asymptomatic with her hypertension. Blood pressure remained elevated after the labetalol here. This document was made in part using voice recognition software. While efforts are made to proofread this document, sound alike and grammatical errors may occur. Departure - Departure Disposition: [facility] DC/Xfer Clinical Impression: Hypertension, condition or complication Condition: Stable Discharge Date/Time: 01/07/22 15:59
[2022-01-07 14:55] LABS: BASOPHILS % (AUTO) 0.3 %; EOSINOPHILS # (AUTO) 0.1 10^3/uL (0.0-0.7); EOSINOPHILS % (AUTO) 2.3 %; HCT - HEMATOCRIT 25.1 % (37.0-47.0); HGB - HEMOGLOBIN 7.9 g/dL (12.0-16.0); LYMPHOCYTES # (AUTO) 1.3 10^3/uL (1.5-3.5); LYMPHOCYTES % (AUTO) 22.5 %; MEAN CORPUSCULAR HEMOGLOBIN 26.3 pg (27.0-31.0); MEAN CORPUSCULAR HGB CONC 31.5 g/dL (32.0-36.0); MEAN CORPUSCULAR VOLUME 83.7 fL (81.0-99.0); MEAN PLATELET VOLUME 11.1 fL (7.9-10.8); MONOCYTES # (AUTO) 0.5 10^3/uL (0.0-1.0); MONOCYTES % (AUTO) 8.5 %; NEUTROPHILS # (AUTO) 3.7 10^3/uL (1.5-6.6); NEUTROPHILS % (AUTO) 64.7 %; PLT - PLATELET COUNT 216 10^3/uL (130-450); RED CELL DISTRIBUTION WIDTH 13.2 % (12.0-15.0); WHITE BLOOD COUNT 5.7 x10^3/uL (4.8-10.8)
[2022-01-07] MEDS ORDERED: MAGNESIUM SULFATE 2 GRAM 2 GM/50 ML BAG IV ONE ×2 (15:00)
[2022-01-07 15:07] LABS: ALBUMIN/GLOBULIN RATIO 0.9 (1.0-2.2); BILIRUBIN,TOTAL 0.5 mg/dL (0.2-1.0); CALCIUM 8.3 mg/dL (8.5-10.3); CREATININE 0.7 mg/dL (0.4-1.0); POTASSIUM 4.1 mmol/L (3.5-5.0); TOTAL PROTEIN 6.2 g/dL (6.7-8.2)
[2022-01-07] MEDS ORDERED: SODIUM CHLORIDE FLUSH 0.9% 10 ML SYRINGE IVP PRN (15:16)
--- NOTE | 2022-01-07 15:21 | HISTORY & PHYSICAL EXAMINATION ---
History and Physical - History and Physical HPI: Patient is a 26-year-old status post on 01/03/2022. She was induced for gestational hypertension and had no severe features, although she was started on labetalol 300 mg 4 times daily. She has not taken this since yesterday. She presented to clinic today for blood pressure check and was found to have blood pressure in the 160s over 110s and was sent to the ED. Currently blood pressure remained 160s over 110s, she did receive a dose of labetalol p.o. She denies headache, change in vision, right upper quadrant pain. Patient is still breast-feeding and that is going well. All other symptoms reviewed and were negative except per HPI. PMH History of preeclampsia PSH None OB History -1-4-4 1. 08/09/2014, 36 weeks, PPP ROM, preeclampsia 2. 01/2015, 9 weeks, termination 3. 08/02/2015, 39 weeks, 4. 02/2018, termination 5. 10/29/2018, 12 weeks, spontaneous 6. 01/03/2022 SH Denies tobacco, alcohol, drug Family History Mother: Diabetes, hypertension Allergies No known drug allergies Medications Labetalol 300 mg every 8 hours Physical exam: Temp Pulse Resp BP Pulse Ox 98.1 F 73 16 167/117 H 100 01/07/22 14:23 01/07/22 14:56 01/07/22 14:56 01/07/22 14:56 01/07/22 14:56 General: Alert, oriented, no acute distress Head: Normal cephalic atraumatic Eyes: PERRLA, extraocular motions intact. Respiratory: Normal rate of respiration. No accessory muscle use, normal respiratory effort. Cardiovascular: Regular rate and rhythm Abdomen: nontender, nondistended Extremities: Normal range of motion Neuro: Oriented x3. Normal movements Psych: Appropriate mood and affect. Normal judgment and insight Laboratory Last Values WBC 5.7 x10^3/uL (4.8-10.8) 01/07/22 14:40 RBC 3.00 10^6/uL (4.20-5.40) L 01/07/22 14:40 Hgb 7.9 g/dL (12.0-16.0) L 01/07/22 14:40 Hct 25.1 % (37.0-47.0) L 01/07/22 14:40 MCV 83.7 fL (81.0-99.0) 01/07/22 14:40 MCH 26.3 pg (27.0-31.0) L 01/07/22 14:40 MCHC 31.5 g/dL (32.0-36.0) L 01/07/22 14:40 RDW 13.2 % (12.0-15.0) 01/07/22 14:40 Plt Count 216 10^3/uL (130-450) 01/07/22 14:40 MPV 11.1 fL (7.9-10.8) H 01/07/22 14:40 Neut # (Auto) 3.7 10^3/uL (1.5-6.6) 01/07/22 14:40 Lymph # (Auto) 1.3 10^3/uL (1.5-3.5) L 01/07/22 14:40 [place] # (Auto) 0.5 10^3/uL (0.0-1.0) 01/07/22 14:40 Eos # (Auto) 0.1 10^3/uL (0.0-0.7) 01/07/22 14:40 Baso # (Auto) 0.0 10^3/uL (0.0-0.1) 01/07/22 14:40 Absolute Nucleated RBC 0.00 x10^3/uL 01/07/22 14:40 Nucleated RBC % 0.0 /100WBC 01/07/22 14:40 Sodium 136 mmol/L (135-145) 01/07/22 14:40 Potassium 4.1 mmol/L (3.5-5.0) 01/07/22 14:40 Chloride 104 mmol/L (101-111) 01/07/22 14:40 Carbon Dioxide 25 mmol/L (21-32) 01/07/22 14:40 Anion Gap 7.0 (6-13) 01/07/22 14:40 BUN 10 mg/dL (6-20) 01/07/22 14:40 Creatinine 0.7 mg/dL (0.4-1.0) 01/07/22 14:40 Estimated GFR (MDRD) 123 (>89) 01/07/22 14:40 Glucose 75 mg/dL (70-100) 01/07/22 14:40 Calcium 8.3 mg/dL (8.5-10.3) L 01/07/22 14:40 Magnesium 2.0 mg/dL (1.7-2.8) 01/07/22 14:40 Total Bilirubin 0.5 mg/dL (0.2-1.0) 01/07/22 14:40 AST 27 IU/L (10-42) 01/07/22 14:40 ALT 24 IU/L (10-60) 01/07/22 14:40 Alkaline Phosphatase 77 IU/L (42-121) 01/07/22 14:40 Total Protein 6.2 g/dL (6.7-8.2) L 01/07/22 14:40 Albumin 3.0 g/dL (3.2-5.5) L 01/07/22 14:40 Globulin 3.2 g/dL (2.1-4.2) 01/07/22 14:40 Albumin/Globulin Ratio 0.9 (1.0-2.2) L 01/07/22 14:40 Plan 26-year-old -1-4-4 admitted with preeclampsia with severe features 1. Preeclampsia with severe features -Patient with worsening blood pressures, 167/117 on my observation while in the ED. -Already received her oral dose of labetalol -Plan to start 4 g bolus of magnesium sulfate for neuro protection followed by 2 g/h. Plan for 24 hours of therapy. -We will treat severe range blood pressures as indicated. -No additional signs or symptoms of worsening features
[2022-01-07] MEDS ORDERED: hydrALAZINE INJ 20 MG/ML VIAL IVP PRN ×2 (15:26)
[2022-01-07] MEDS ORDERED: LABETALOL 20 MG/4 ML SYRINGE IVP PRN ×3 (15:26→15:40)
[2022-01-07 15:34] LABS: BILIRUBIN,URINE NEGATIVE (NEGATIVE); GLUCOSE, URINE (UA) NEGATIVE (NEGATIVE); KETONES,URINE (UA) NEGATIVE (NEGATIVE); LEUKOCYTE ESTERASE, URINE NEGATIVE (NEGATIVE); NITRITE,URINE NEGATIVE (NEGATIVE); OCCULT BLOOD,URINE MODERATE (NEGATIVE); PH,URINE 7.5 PH (5.0-7.5); PROTEIN,URINE NEGATIVE (NEGATIVE); UROBILINOGEN,URINE 0.2 (NORMAL) E.U./dL (NORMAL)
[2022-01-07 15:43] LABS: CLARITY,URINE CLEAR (CLEAR)
[2022-01-07 15:45] LABS: CREATININE,URINE 135.1 mg/dL
[2022-01-07 15:49] LABS: BACTERIA,URINE Few /HPF (None Seen); MUCUS,URINE Few Strands; SQUAMOUS EPITHELIAL CELL,UR MANY Squamous (<= Few); WBC,URINE 0-3 /HPF (0-5)
[2022-01-07 16:21] LABS: B. PARAPERTUSSIS- RESP PCR PAN NOT DETECTED; B. PERTUSSIS- RESP PCR PANEL NOT DETECTED; C. PNEUMONIAE- RESP PCR PANEL NOT DETECTED; CORONAVIRUS 229E-RESP PCR NOT DETECTED; CORONAVIRUS HKU1-RESP PCR NOT DETECTED; CORONAVIRUS NL63-RESP PCR NOT DETECTED; CORONAVIRUS OC43-RESP PCR NOT DETECTED; HUMAN METAPNEUMOVIRUS NOT DETECTED; INFLUENZA A- RESP PCR PANEL NOT DETECTED; INFLUENZA B - RESP PCR PANEL NOT DETECTED; M. PNEUMONIAE- RESP PCR PANEL NOT DETECTED; PARAINFLUENZA VIRUS 1 NOT DETECTED; PARAINFLUENZA VIRUS 2 NOT DETECTED; PARAINFLUENZA VIRUS 3 NOT DETECTED; PARAINFLUENZA VIRUS 4 NOT DETECTED; RHINOVIRUS/ENTEROVIRUS NOT DETECTED; RSV- RESP PCR PANEL NOT DETECTED; SARS-CoV-2 -RESP PCR PANEL NOT DETECTED
[2022-01-07] MEDS: MAGNESIUM SULFATE IN WATER 20 GM/500 ML IV.SOLN IV SCH (16:30)
[2022-01-07] MEDS: SODIUM CHLORIDE FLUSH 0.9% 10 ML SYRINGE IVP SCH (18:17)
[2022-01-07] MEDS: LABETALOL 100 MG TABLET PO SCH (21:04)
[2022-01-07 22:41] LABS: BASOPHILS % (AUTO) 0.5 %; EOSINOPHILS # (AUTO) 0.2 10^3/uL (0.0-0.7); EOSINOPHILS % (AUTO) 2.6 %; HCT - HEMATOCRIT 24.5 % (37.0-47.0); HGB - HEMOGLOBIN 7.7 g/dL (12.0-16.0); LYMPHOCYTES # (AUTO) 1.5 10^3/uL (1.5-3.5); LYMPHOCYTES % (AUTO) 24.1 %; MEAN CORPUSCULAR HEMOGLOBIN 26.1 pg (27.0-31.0); MEAN CORPUSCULAR HGB CONC 31.4 g/dL (32.0-36.0); MEAN CORPUSCULAR VOLUME 83.1 fL (81.0-99.0); MEAN PLATELET VOLUME 10.5 fL (7.9-10.8); MONOCYTES # (AUTO) 0.5 10^3/uL (0.0-1.0); MONOCYTES % (AUTO) 8.3 %; NEUTROPHILS # (AUTO) 3.8 10^3/uL (1.5-6.6); NRBC ABSOLUTE COUNT (AUTO) 0.02 x10^3/uL; NUCLEATED RED BLOOD CELLS AUTO 0.3 /100WBC; PLT - PLATELET COUNT 235 10^3/uL (130-450); RED BLOOD COUNT 2.95 10^6/uL (4.20-5.40); RED CELL DISTRIBUTION WIDTH 13.2 % (12.0-15.0); WHITE BLOOD COUNT 6.1 x10^3/uL (4.8-10.8)
[2022-01-07 22:55] LABS: ALBUMIN 2.8 g/dL (3.2-5.5); ALBUMIN/GLOBULIN RATIO 0.9 (1.0-2.2); BILIRUBIN,TOTAL 0.5 mg/dL (0.2-1.0); CALCIUM 7.5 mg/dL (8.5-10.3); CREATININE 0.7 mg/dL (0.4-1.0); POTASSIUM 3.6 mmol/L (3.5-5.0); TOTAL PROTEIN 5.9 g/dL (6.7-8.2)
[2022-01-08] MEDS: MAGNESIUM SULFATE IN WATER 20 GM/500 ML IV.SOLN IV SCH ×2 (02:17→12:28)
[2022-01-08 06:44] LABS: BASOPHILS % (AUTO) 0.6 %; EOSINOPHILS # (AUTO) 0.1 10^3/uL (0.0-0.7); HGB - HEMOGLOBIN 7.8 g/dL (12.0-16.0); LYMPHOCYTES # (AUTO) 1.5 10^3/uL (1.5-3.5); LYMPHOCYTES % (AUTO) 31.8 %; MEAN CORPUSCULAR HEMOGLOBIN 25.9 pg (27.0-31.0); MEAN CORPUSCULAR HGB CONC 31.2 g/dL (32.0-36.0); MEAN CORPUSCULAR VOLUME 83.1 fL (81.0-99.0); MEAN PLATELET VOLUME 10.3 fL (7.9-10.8); MONOCYTES # (AUTO) 0.4 10^3/uL (0.0-1.0); MONOCYTES % (AUTO) 8.5 %; NEUTROPHILS # (AUTO) 2.6 10^3/uL (1.5-6.6); NEUTROPHILS % (AUTO) 54.8 %; PLT - PLATELET COUNT 216 10^3/uL (130-450); RED BLOOD COUNT 3.01 10^6/uL (4.20-5.40); RED CELL DISTRIBUTION WIDTH 13.4 % (12.0-15.0); WHITE BLOOD COUNT 4.7 x10^3/uL (4.8-10.8)
[2022-01-08 06:58] LABS: ALBUMIN 2.9 g/dL (3.2-5.5); BILIRUBIN,TOTAL 0.6 mg/dL (0.2-1.0); CALCIUM 7.2 mg/dL (8.5-10.3); CREATININE 0.6 mg/dL (0.4-1.0); POTASSIUM 3.7 mmol/L (3.5-5.0); TOTAL PROTEIN 5.8 g/dL (6.7-8.2)
[2022-01-08] MEDS: ACETAMINOPHEN 500 MG TABLET PO PRN ×2 (07:05→19:43)
[2022-01-08] MEDS: SODIUM CHLORIDE FLUSH 0.9% 10 ML SYRINGE IVP SCH ×3 (07:23→17:04)
[2022-01-08] MEDS: LABETALOL 100 MG TABLET PO SCH ×2 (09:07→22:41)
[2022-01-08 14:42] LABS: BASOPHILS % (AUTO) 0.4 %; EOSINOPHILS # (AUTO) 0.1 10^3/uL (0.0-0.7); EOSINOPHILS % (AUTO) 2.2 %; HCT - HEMATOCRIT 24.4 % (37.0-47.0); HGB - HEMOGLOBIN 7.6 g/dL (12.0-16.0); LYMPHOCYTES # (AUTO) 1.3 10^3/uL (1.5-3.5); LYMPHOCYTES % (AUTO) 27.5 %; MEAN CORPUSCULAR HEMOGLOBIN 25.9 pg (27.0-31.0); MEAN CORPUSCULAR HGB CONC 31.1 g/dL (32.0-36.0); MEAN CORPUSCULAR VOLUME 83.3 fL (81.0-99.0); MEAN PLATELET VOLUME 10.6 fL (7.9-10.8); MONOCYTES # (AUTO) 0.5 10^3/uL (0.0-1.0); NEUTROPHILS # (AUTO) 2.7 10^3/uL (1.5-6.6); NEUTROPHILS % (AUTO) 58.6 %; NRBC ABSOLUTE COUNT (AUTO) 0.02 x10^3/uL; NUCLEATED RED BLOOD CELLS AUTO 0.4 /100WBC; PLT - PLATELET COUNT 225 10^3/uL (130-450); RED BLOOD COUNT 2.93 10^6/uL (4.20-5.40); RED CELL DISTRIBUTION WIDTH 13.6 % (12.0-15.0); WHITE BLOOD COUNT 4.6 x10^3/uL (4.8-10.8)
[2022-01-08 15:06] LABS: ALBUMIN 2.7 g/dL (3.2-5.5); ALBUMIN/GLOBULIN RATIO 0.9 (1.0-2.2); BILIRUBIN,TOTAL 0.4 mg/dL (0.2-1.0); CALCIUM 6.9 mg/dL (8.5-10.3); CREATININE 0.8 mg/dL (0.4-1.0); POTASSIUM 3.7 mmol/L (3.5-5.0); TOTAL PROTEIN 5.7 g/dL (6.7-8.2)
[2022-01-08] MEDS ORDERED: PROMETHAZINE 25 MG TABLET PO ONE (20:00)
--- NOTE | 2022-01-08 20:17 | PROVIDER PROGRESS NOTE ---
Subjective - Prog Note Date Prog Note Date: 01/08/22 Prog Note Time: 18:15 - Subjective Subjective: ID: Patient is a 26-year-old status post on 01/03/2022 admitted with pre-eclampsia with severe features. HPI: Patient was induced for gestational hypertension and had no severe features, although she was started on labetalol 300 mg 4 times daily. She presented to clinic on 01/07/22 for a blood pressure check and was found to have blood pressure in the 160s over 110s and was sent to the ED. She was admitted for pre-eclampsia as blood pressure remained 160s over 110s at presentation. She was started on a magnesium infusion. She has since completed 24 hours of magnesium. PIH labs have been wnl other than P:C 0.9. Blood pressures have been in normal to mild range on labetalol 300 mg po bid. She does endorses LAL rated 7/10 but has not had any medication. She attributes the LAL to crying all day as she is having a hard time being away from her 4 children. She does have good childcare arranged. No vision change. No RUQ pain. O: VS: 98.3 61 144/92 16 99% GEN: NAD HEENT: NCAT CV: RRR RESP: nl effort, CTAB ABD: S&NT/ND. No RUQ TTP EXT: WWP, NO LE edema or TTP PSYCH: Appropriate affect A/P: 26 yo admitted with post- pre-eclampsia. PRE-ECLAMPSIA- s/p magnesium x24 hours -BPs in mild range on labetalol 300 mg po bid LAL: Having LAL but no pain medications for mitigation -Feels she needs more sleep -Giving acetaminophen 1000 mg po x1 -Phenergan 50 mg po x1 for LAL and sleep Will observe for 24 hours post-magnesium and then DC to home if BPs remain in mild range Will given iron infusion in am given anemia and presence of LAL. Objective - Vital Signs/Intake & Output Vital Signs: Vital Signs x48h Temp Pulse Resp BP Pulse Ox 01/08/22 19:50 98.4 F 61 16 144/92 H 99 01/08/22 18:19 99.0 F 75 16 143/94 H 100 01/08/22 14:04 98.4 F 81 18 123/76 98 Intake & Output: Intake & Output 01/05/22 01/06/22 01/07/22 01/08/22 23:59 23:59 23:59 23:59 Intake Total 210 1719.167 Output Total 900 1625 Balance -220 94.167 - Lab Results Fish Bones: 01/08/22 12:35 01/08/22 12:35 Other Labs: Lab Results x24hrs 01/08/22 01/08/22 01/08/22 Range/Units 12:35 12:35 06:39 WBC 4.6 L (4.8-10.8) x10^3/uL RBC 2.93 L (4.20-5.40) 10^6/uL Hgb 7.6 L (12.0-16.0) g/dL Hct 24.4 L (37.0-47.0) % MCV 83.3 (81.0-99.0) fL MCH 25.9 L (27.0-31.0) pg MCHC 31.1 L (32.0-36.0) g/dL RDW 13.6 (12.0-15.0) % Plt Count 225 (130-450) 10^3/uL MPV 10.6 (7.9-10.8) fL Neut # (Auto) 2.7 (1.5-6.6) 10^3/uL Lymph # (Auto) 1.3 L (1.5-3.5) 10^3/uL [place] # (Auto) 0.5 (0.0-1.0) 10^3/uL Eos # (Auto) 0.1 (0.0-0.7) 10^3/uL Baso # (Auto) 0.0 (0.0-0.1) 10^3/uL Absolute Nucleated RBC 0.02 x10^3/uL Nucleated RBC % 0.4 /100WBC Sodium 135 136 (135-145) mmol/L Potassium 3.7 3.7 (3.5-5.0) mmol/L Chloride 105 103 (101-111) mmol/L Carbon Dioxide 24 24 (21-32) mmol/L Anion Gap 6.0 9.0 (6-13) BUN 9 8 (6-20) mg/dL Creatinine 0.8 0.6 (0.4-1.0) mg/dL Estimated GFR (MDRD) 105 146 (>89) Glucose 115 H 90 (70-100) mg/dL Calcium 6.9 L 7.2 L (8.5-10.3) mg/dL Total Bilirubin 0.4 0.6 (0.2-1.0) mg/dL AST 22 23 (10-42) IU/L ALT 21 21 (10-60) IU/L Alkaline Phosphatase 70 71 (42-121) IU/L Total Protein 5.7 L 5.8 L (6.7-8.2) g/dL Albumin 2.7 L 2.9 L (3.2-5.5) g/dL Globulin 3.0 2.9 (2.1-4.2) g/dL Albumin/Globulin Ratio 0.9 L 1.0 (1.0-2.2) 01/08/22 01/07/22 01/07/22 Range/Units 06:39 22:35 22:35 WBC 4.7 L 6.1 (4.8-10.8) x10^3/uL RBC 3.01 L 2.95 L (4.20-5.40) 10^6/uL Hgb 7.8 L 7.7 L (12.0-16.0) g/dL Hct 25.0 L 24.5 L (37.0-47.0) % MCV 83.1 83.1 (81.0-99.0) fL MCH 25.9 L 26.1 L (27.0-31.0) pg MCHC 31.2 L 31.4 L (32.0-36.0) g/dL RDW 13.4 13.2 (12.0-15.0) % Plt Count 216 235 (130-450) 10^3/uL MPV 10.3 10.5 (7.9-10.8) fL Neut # (Auto) 2.6 3.8 (1.5-6.6) 10^3/uL Lymph # (Auto) 1.5 1.5 (1.5-3.5) 10^3/uL [place] # (Auto) 0.4 0.5 (0.0-1.0) 10^3/uL Eos # (Auto) 0.1 0.2 (0.0-0.7) 10^3/uL Baso # (Auto) 0.0 0.0 (0.0-0.1) 10^3/uL Absolute Nucleated RBC 0.00 0.02 x10^3/uL Nucleated RBC % 0.0 0.3 /100WBC Sodium 133 L (135-145) mmol/L Potassium 3.6 (3.5-5.0) mmol/L Chloride 103 (101-111) mmol/L Carbon Dioxide 23 (21-32) mmol/L Anion Gap 7.0 (6-13) BUN 11 (6-20) mg/dL Creatinine 0.7 (0.4-1.0) mg/dL Estimated GFR (MDRD) 123 (>89) Glucose 142 H (70-100) mg/dL Calcium 7.5 L (8.5-10.3) mg/dL Total Bilirubin 0.5 (0.2-1.0) mg/dL AST 24 (10-42) IU/L ALT 23 (10-60) IU/L Alkaline Phosphatase 72 (42-121) IU/L Total Protein 5.9 L (6.7-8.2) g/dL Albumin 2.8 L (3.2-5.5) g/dL Globulin 3.1 (2.1-4.2) g/dL Albumin/Globulin Ratio 0.9 L (1.0-2.2)
[2022-01-09] MEDS ORDERED: FERRIC GLUCONATE 125 MG in SODIUM CHLORIDE 0.9% 100ML 100 ML IV ONE (09:00)
[2022-01-09] MEDS: SODIUM CHLORIDE FLUSH 0.9% 10 ML SYRINGE IVP SCH (10:05)
[2022-01-09] MEDS: LABETALOL 100 MG TABLET PO SCH (10:17)
[2022-01-09] MEDS ORDERED: CALCIUM CARBONATE CHEW 500 MG TABLET PO ONE (11:00)
[2022-01-09] MEDS: MAGNESIUM SULFATE IN WATER 20 GM/500 ML IV.SOLN IV SCH (11:18)
--- NOTE | 2022-01-09 12:06 | PROVIDER PROGRESS NOTE ---
Subjective - Prog Note Date Prog Note Date: 01/09/22 Prog Note Time: 12:04 - Subjective Subjective: S: Patient is doing well. LAL has resolved. No vision change or RUQ pain. Blood pressures have remained within mild range. Has been borderline bradycardic with need to hold labetalol several times. Patient desperately wants to be discharged [facility]. Does nto want to extend stay to titrate up onb nifedipine. Received iron infusion for anemia. Getting calcium carbonate for hypocalcemia. O: 98.4 137/95 18 100 58 GEN: NAD HEAD: NCAT EYES: No scleral icterus or conjunctival injection CV: RRR RESP: CTAB, normal effort ABD: S&NT/ND, No RUQ pain PSYCH: appropriate affect NEURO: alert and oriented, normal gait and coordination EXT: WWP A/P: Objective - Vital Signs/Intake & Output Vital Signs: Vital Signs x48h Temp Pulse Pulse Resp BP Pulse Ox 01/09/22 10:12 67 16 145/92 H 100 01/09/22 07:59 98.4 F 58 L 18 137/95 H 100 01/09/22 05:36 98.8 F 70 14 150/95 H Intake & Output: Intake & Output 01/06/22 01/07/22 01/08/22 01/09/22 23:59 23:59 23:59 23:59 Intake Total 680 1719.167 110 Output Total 900 1625 Balance -220 94.167 110 - Lab Results Fish Bones: 01/08/22 12:35 01/08/22 12:35 Other Labs: Lab Results x24hrs 01/08/22 01/08/22 Range/Units 12:35 12:35 WBC 4.6 L (4.8-10.8) x10^3/uL RBC 2.93 L (4.20-5.40) 10^6/uL Hgb 7.6 L (12.0-16.0) g/dL Hct 24.4 L (37.0-47.0) % MCV 83.3 (81.0-99.0) fL MCH 25.9 L (27.0-31.0) pg MCHC 31.1 L (32.0-36.0) g/dL RDW 13.6 (12.0-15.0) % Plt Count 225 (130-450) 10^3/uL MPV 10.6 (7.9-10.8) fL Neut # (Auto) 2.7 (1.5-6.6) 10^3/uL Lymph # (Auto) 1.3 L (1.5-3.5) 10^3/uL [place] # (Auto) 0.5 (0.0-1.0) 10^3/uL Eos # (Auto) 0.1 (0.0-0.7) 10^3/uL Baso # (Auto) 0.0 (0.0-0.1) 10^3/uL Absolute Nucleated RBC 0.02 x10^3/uL Nucleated RBC % 0.4 /100WBC Sodium 135 (135-145) mmol/L Potassium 3.7 (3.5-5.0) mmol/L Chloride 105 (101-111) mmol/L Carbon Dioxide 24 (21-32) mmol/L Anion Gap 6.0 (6-13) BUN 9 (6-20) mg/dL Creatinine 0.8 (0.4-1.0) mg/dL Estimated GFR (MDRD) 105 (>89) Glucose 115 H (70-100) mg/dL Calcium 6.9 L (8.5-10.3) mg/dL Total Bilirubin 0.4 (0.2-1.0) mg/dL AST 22 (10-42) IU/L ALT 21 (10-60) IU/L Alkaline Phosphatase 70 (42-121) IU/L Total Protein 5.7 L (6.7-8.2) g/dL Albumin 2.7 L (3.2-5.5) g/dL Globulin 3.0 (2.1-4.2) g/dL Albumin/Globulin Ratio 0.9 L (1.0-2.2) Assessment/Plan - Problem List (1) Preeclampsia Impression: Patient is a 26-year-old status post on 01/03/2022 admitted with pre-eclampsia with severe features. Blood pressures in mild range on labetalol 300 mg po bid -Reviewed low heart rate and cotnraindications for use with HR<60 -Reviewed option to switch medications, but may prolong stay. Patient not interested in any potential increase in duration of stay -Has BP cuff at home that also monitors HR. Instructed to check BP and HR prior to taking labetalol. Will hold and recheck at one hour if HR<60 -Will check BP every 4 hours at home and follow-up within the week Plan for DC at 17:00 if blood pressures are maintained in mild range Rx for iron and vit C sent to [facility]
--- NOTE | 2022-01-09 12:22 | Discharge Plan ---
Discharge Plan Problem Reviewed?: Yes Disposition: Home, Self Care Condition: Good Prescriptions: Ferrous Gluconate 324 mg PO BID #60 tablet Ascorbic Acid [Vitamin C] 250 mg PO BID 2 Days #60 tablet Additional Instructions or Follow Up instructions: Continue with labetalol 300 mg by mouth twice a day -Please check blood pressure and heart rate before taking medication -If heart rate is less than 60, hold medication for 1 hour and then recheck again. Do not take medication is heart rate is less than 60 -Please check blood pressure every 4 hours -Please return for blood pressure check within one week Call for: Systolic blood pressures (upper number) over 160 or diastolic blood pressure (lower number) more than 110 Severe headache that does not improve with pain medication Sparkly lights or black spots in your field of vision Pain in the right upper corner of your abdomen No Smoking: If you smoke, Please STOP! Call for help. Follow-up with: Ruperto Biggs MD [Provider Admit Priv/Credential] -
--- NOTE | 2022-01-09 12:24 | DISCHARGE SUMMARY ---
Discharge Summary Admit Date: 01/07/22 Discharge Date: 01/09/22 Discharging Provider: John Condition at Discharge: Good Discharge Disposition: 01 Home, Self Care - DIAGNOSES Admission Diagnoses: pre-eclampsia with severe features - HPI History of Present Illness: Patient is a 26-year-old status post on 01/03/2022. She was induced for gestational hypertension and had no severe features, although she was started on labetalol 300 mg 4 times daily. She presented to clinic 01/06/22 for blood pressure check and was found to have blood pressure in the 160s over 110s and was sent to the ED. Currently blood pressure remained 160s over 110s, she did receive a dose of labetalol p.o. She denied headache, change in vision, right upper quadrant pain. Patient is still breast-feeding and that is going well. All other symptoms reviewed and were negative except per HPI. PMH History of preeclampsia PSH None OB History -1-4-4 1. 08/09/2014, 36 weeks, PPP ROM, preeclampsia 2. 01/2015, 9 weeks, termination 3. 08/02/2015, 39 weeks, 4. 02/2018, termination 5. 10/29/2018, 12 weeks, spontaneous 6. 01/03/2022 SH Denies tobacco, alcohol, drug Family History Mother: Diabetes, hypertension Allergies No known drug allergies Medications Labetalol 300 mg every 8 hours - HOSPITAL COURSE Hospital Course: PRE-ECLAMPSIA: Patient was admitted for management of pre-eclampsia with severe features by blood pressure criteria. Also developed headache, which resolved with phenergan and acetaminophen. Was started on magnesium infusion for 24 hours. Labetalol was continued at 300 mg po bid. Her heart rate did sometimes dip below 60 and medication was periodically held for one hour. We discussed transitioning to nifedipine but patient did not want any interventions that could prolong her stay. Heart rate regularly increased to >60 bpm after medication delay of one hour. BPs remained in mild rage during in-patient stay. ANEMIA: Received ferric gluconate 125 mg IV x1 -Discharged on iron and vitamin C LOW CALCIUM: repleted with oral calcium : Pumped and stored breast milk Discharged to home 24 hours s/p completion of magnesium infusion. FU in clinic within one week - ALLERGIES Allergies/Adverse Reactions: Allergies Allergy/AdvReac Type Severity Reaction Status Date / Time No Known Drug Allergies Allergy Verified 01/07/22 14:26 - MEDICATIONS Home Medications: Ambulatory Orders Medication Instructions Recorded Confirmed Acetaminophen [Tylenol] 1,000 mg PO Q8H PRN tablet 01/04/22 01/07/22 Docusate Sodium 100Mg Capsule 200 mg PO BID 01/04/22 01/07/22 [Colace 100Mg Capsule] Ferrous Sulfate [Feosol] 325 mg PO DAILYWM tablet 01/04/22 01/07/22 Ibuprofen [Motrin] 600 mg PO Q6H tablet 01/04/22 01/07/22 Labetalol [Trandate] 300 mg PO Q8H 30 Days #60 tablet 01/04/22 01/07/22 oxyCODONE [Roxicodone] 5 mg PO Q6HR PRN 3 Days #7 tablet 01/04/22 01/07/22 Ascorbic Acid [Vitamin C] 250 mg PO BID 2 Days #60 tablet 01/09/22 Ferrous Gluconate 324 mg PO BID #60 tablet 01/09/22 - PHYSICAL EXAM AT DISCHARGE General Appearance: positive: No acute distress Neck: positive: Nml inspection Respiratory: positive: No respiratory distress, Breath sounds nml Peripheral Pulses: positive: 2+ Abdomen: positive: Non-tender, No distention Back: positive: Nml inspection Neurologic/Psychiatric: positive: Oriented x3, Depressed mood/affect - LABS Result Diagrams: 01/08/22 12:35 01/08/22 12:35 - FOLLOW UP Follow Up: within one week for BP check - TIME SPENT Time Spent in Discharge (Minutes): 30
[2022-01-09 17:12] VITALS: BP 154/94
== END 2022-01-09 17:43 | disposition home or self-care (01) | DRG 776 ==
LOC: ED 14:17 → FBP 15:16
PROVIDERS: ADMIT Obstetrics & Gynecology; ATTEND Obstetrics & Gynecology
DX: O14.15 Severe pre-eclampsia, complicating the puerperium (principal); Z20.822 Contact with and (suspected) exposure to COVID-19; T44.8X6A Underdosing of centrally-acting and adrenergic-neuron-blocking agents, initial encounter; Z91.128 Patient's intentional underdosing of medication regimen for other reason; O90.81 Anemia of the puerperium
CPT/HCPCS: 0202U; 36415; 80053; 81001; 82570; 83735; 84156; 85025; 99283; 99285; A9270; J2916; Q0169; 81003; 87086

== ENCOUNTER 2022-05-25 11:10 | Outpatient (CLI) | payer OTHER ==
[2022-05-25 18:14] LABS: BASOPHILS % (AUTO) 0.8 %; EOSINOPHILS # (AUTO) 0.1 10^3/uL (0.0-0.7); EOSINOPHILS % (AUTO) 2.5 %; HCT - HEMATOCRIT 35.6 % (37.0-47.0); HGB - HEMOGLOBIN 11.4 g/dL (12.0-16.0); LYMPHOCYTES # (AUTO) 1.6 10^3/uL (1.5-3.5); LYMPHOCYTES % (AUTO) 39.8 %; MEAN CORPUSCULAR HEMOGLOBIN 27.9 pg (27.0-31.0); MEAN CORPUSCULAR VOLUME 87.3 fL (81.0-99.0); MEAN PLATELET VOLUME 12.8 fL (7.9-10.8); MONOCYTES # (AUTO) 0.5 10^3/uL (0.0-1.0); MONOCYTES % (AUTO) 11.5 %; NEUTROPHILS # (AUTO) 1.8 10^3/uL (1.5-6.6); NEUTROPHILS % (AUTO) 45.4 %; PLT - PLATELET COUNT 213 10^3/uL (130-450); RED BLOOD COUNT 4.08 10^6/uL (4.20-5.40); RED CELL DISTRIBUTION WIDTH 13.9 % (12.0-15.0)
[2022-05-25 18:35] LABS: ALBUMIN 4.2 g/dL (3.2-5.5); ALBUMIN/GLOBULIN RATIO 1.5 (1.0-2.2); ALKALINE PHOSPHATASE 53 IU/L (42-121); ALT ALANINE AMINOTRANSFERASE 16 IU/L (10-60); AST ASPARTATE AMINOTRANSFERASE 19 IU/L (10-42); BILIRUBIN,TOTAL 0.5 mg/dL (0.2-1.0); BUN - BLOOD UREA NITROGEN 13 mg/dL (6-20); CALCIUM 9.7 mg/dL (8.5-10.3); CARBON DIOXIDE - CO2 29 mmol/L (21-32); CHLORIDE 107 mmol/L (101-111); CHOL/HDL RATIO 2.7 (<4.4); CHOLESTEROL 169 mg/dL; CREATININE 0.7 mg/dL (0.4-1.0); GFR - MDRD 123 (>89); GLUCOSE 80 mg/dL (70-100); HDL CHOLESTEROL 62 mg/dL; LDL CHOLESTEROL,CALCULATED 99 mg/dL; LDL/HDL RATIO 1.6 (<4.4); POTASSIUM 3.8 mmol/L (3.5-5.0); SODIUM 142 mmol/L (135-145); TRIGLYCERIDES 42 mg/dL; VLDL CHOLESTEROL 8 mg/dL
[2022-05-25 18:46] LABS: THYROID STIMULATING HORMONE 1.58 uIU/mL (0.34-5.60)
[2022-05-25 19:00] LABS: ESTIMATED AVERAGE GLUCOSE 117 mg/dL (70-100); HEMOGLOBIN A1c% 5.7 % (4.27-6.07)
== END 2022-05-25 11:11 | disposition home or self-care (01) ==
LOC: LAB.N 11:10
PROVIDERS: ATTEND Nurse Practitioner Family
DX: E66.9 Obesity, unspecified (principal)
CPT/HCPCS: 36415; 80053; 80061; 83036; 83721; 84443; 85025

== ENCOUNTER 2023-01-28 10:17 | Outpatient (CLI) | payer OTHER, MEDICAID ==
[2023-01-28 11:27] LABS: BASOPHILS % (AUTO) 0.5 %; EOSINOPHILS # (AUTO) 0.1 10^3/uL (0.0-0.7); EOSINOPHILS % (AUTO) 2.6 %; HCT - HEMATOCRIT 37.7 % (37.0-47.0); HGB - HEMOGLOBIN 12.2 g/dL (12.0-16.0); LYMPHOCYTES # (AUTO) 1.9 10^3/uL (1.5-3.5); LYMPHOCYTES % (AUTO) 45.6 %; MEAN CORPUSCULAR HEMOGLOBIN 27.9 pg (27.0-31.0); MEAN CORPUSCULAR HGB CONC 32.4 g/dL (32.0-36.0); MEAN CORPUSCULAR VOLUME 86.1 fL (81.0-99.0); MEAN PLATELET VOLUME 11.1 fL (7.9-10.8); MONOCYTES # (AUTO) 0.4 10^3/uL (0.0-1.0); MONOCYTES % (AUTO) 10.1 %; NEUTROPHILS # (AUTO) 1.7 10^3/uL (1.5-6.6); PLT - PLATELET COUNT 254 10^3/uL (130-450); RED BLOOD COUNT 4.38 10^6/uL (4.20-5.40); RED CELL DISTRIBUTION WIDTH 12.5 % (12.0-15.0); WHITE BLOOD COUNT 4.2 x10^3/uL (4.8-10.8)
[2023-01-28 11:45] LABS: ALBUMIN 3.8 g/dL (3.2-5.5); ALBUMIN/GLOBULIN RATIO 1.3 (1.0-2.2); BILIRUBIN,TOTAL 0.4 mg/dL (0.2-1.0); CALCIUM 8.8 mg/dL (8.5-10.3); CREATININE 0.7 mg/dL (0.4-1.0); POTASSIUM 4.5 mmol/L (3.5-5.0); TOTAL PROTEIN 6.8 g/dL (6.7-8.2)
[2023-01-28 12:16] LABS: ESTIMATED AVERAGE GLUCOSE 114 mg/dL (70-100); HEMOGLOBIN A1c% 5.6 % (4.27-6.07)
[2023-01-28 15:48] LABS: THYROID STIMULATING HORMONE 0.98 uIU/mL (0.34-5.60)
[2023-01-28 15:50] LABS: FERRITIN 22.4 ng/mL (11.0-306.8)
== END 2023-01-28 10:18 | disposition home or self-care (01) ==
LOC: LAB.N 10:17
PROVIDERS: ATTEND Nurse Practitioner Family
DX: R07.89 Other chest pain (principal); R53.83 Other fatigue; R12 Heartburn; E66.9 Obesity, unspecified
CPT/HCPCS: 36415; 80053; 82728; 83036; 83540; 84443; 84466; 85025

== ENCOUNTER 2023-03-30 09:18 | Outpatient (CLI) | payer OTHER, MEDICAID ==
--- NOTE | 2023-03-30 09:18 | CARDIAC PROCEDURE NOTE ---
Stress Test Report Service Date: 03/30/23 Service Time: 09:30 Ordering Provider: Christie Robert CFNP Indication for Test: Asssess chest discomfort. Significant Medical History: Deborah reports experiencing brief episodes of sharp, substernal chest discomfort radiating to her left shoulder, occurring nearly daily as far back as September. At that time she was seen in our Emergency Department and had negative troponins. 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 She does not especially identify stress or exertion as triggers for her discomfort, rather it seems to come and go randomly. Sometimes the discomfort is associated with lightheadedness, though it is always quite short-lived, mostly about 30 seconds with spontaneous resolution, occasionally up to 1 minute of duration. The discomfort is not associated with diaphoresis or increased shortness of breath. She also reports a history of epigastric discomfort most consistent with GI origin, likely heartburn. She takes Zantac on a regular basis and she questions whether the sharp chest pain could in some way relate to this GI based discomfort. The frequency of the chest pain episodes has increased recently, prompting today's study. She does some walking with her children and feels that her exertional tolerance remains intact. She has had manifestations of gestational hypertension with each of her pregnancies, but blood pressure always normalized after her pregnancies until the most recent one, following which it remained persistently elevated and for which she has been treated with extended release diltiazem 120 mg twice daily for about one year. Her last dose was 24 hours prior to today's study. She has done some home blood pressure monitoring, though finds the va lues obtained with her arm cuff quite variable and difficult to interpret; she has not yet brought the cuff in to her clinic for evaluation. She also reports being aware of episodes of significant lightheadedness and bradycardia, especially when trying to concentrate in class. She has a follow-up scheduled with her primary provider in April. Cardiac Risk Factors: Positive for history of hypertension (HTN) treated for ~1 year, negative for hyperlipidemia, diabetes, cigarette smoking and family history of CAD, though HTN runs in her family. Type of Stress Test: ETT with Echocardiography Procedure: -Exercise Treadmill Test- After signing informed consent, the patient underwent echo imaging at rest and then performed treadmill exercise using a Arcenio protocol. The patient exercised for 6 minutes 15 seconds and achieved a peak heart rate of 182 (93 percent predicted maximum heart rate for age), and an estimated workload of 7.4 METS. The test was terminated due to fatigue/shortness of breath. Resting heart rate: 73 Peak heart rate: 182 Normal response to exercise. Resting BP: 107/95 Peak BP: 259/63 Elevated diastolic BP at rest, with robust increase in systolic BP and normal decrease in diastolic BP in response to exercise. Rhythm during exercise: Sinus rhythm throughout without ectopy. Symptoms: She reported transient mild lightheadedness at study onset with subsquent resolution; she denied experiencing any chest or epigastric discomfort with exertion. EKG at rest showed sinus bradycardia and was otherwise fully normal. EKG at peak stress showed J-point depression with upsloping ST segments, likely NOT meeting diagnostic criteria for ischemia. In Recovery HR and BP decreased towards baseline levels, though remained elevated (HR 120, ERIC 177/55) at 5:00. Echo imaging performed at rest and with stress will be reported separately. IManpreet MD, was present throughout this treadmill stress study and supervised it in its entirety. Summary: 1) Exercise tolerance markedly reduced for age and gender, as evidenced by KIKE of 37%. 2) Normal resting EKG. 3) Adequate level of exercise was achieved on this treadmill stress test. 4) Elevated resting diastolic BP with robust increase of systolic BP and normal decrease of diastolic BP in response to exercise. 5) Upsloping ST depression likely not meeting diagnostic EKG criteria for ischemia was seen at peak stress. 6) Echo image interpretation reveals normal left ventricular size, wall thickness and systolic function, with appropriate hyperdynamic augmentation of all segments with exercise, indicating no evidence of prior infarct or inducible ischemia. No significant valvular abnormality or elevation of estimated pulmonary artery systolic pressure seen on screening study. See separate report for more details. Conclusions and Recommendations: 1) Overall the test results are reassuring that the patient's sharp chest pain is likely not a manifestation of cardiac ischemia, though she does have significant reduction in exercise tolerance for her age. 2) Given her concerns for lightheadedness at test onset, as well as occurrence of spontaneous lightheadedness in the early part of the day with twice daily administration of diltiazem, I contacted her new primary provider (Christie Robert) to discuss a reduction in dose of this agent. She would like to review the patient's chart and have her care team reach out to the patient with recommendation(s) for change in treatment. I did recommend that the patient do some blood pressure measurements with her home cuff and bring the latter with her to her next visit, to try to troubleshoot any issues that she may be having
== END 2023-03-30 09:19 | disposition home or self-care (01) ==
LOC: DI 09:18
PROVIDERS: ATTEND Nurse Practitioner Family
DX: R07.89 Other chest pain (principal); R10.13 Epigastric pain; R42 Dizziness and giddiness; R00.1 Bradycardia, unspecified; I10 Essential (primary) hypertension
CPT/HCPCS: 93350

== ENCOUNTER 2023-05-03 07:24 | Day surgery (SDC) | payer OTHER, MEDICAID ==
[2023-05-03] MEDS ORDERED: LACTATED RINGERS 1,000 ML IV ONE ×2 (07:36→08:30)
[2023-05-03 07:40] LABS: HCG UR QUAL NEGATIVE
--- NOTE | 2023-05-03 08:02 | ANESTHESIA ---
Pre-Anesthesia VS, & Labs - Diagnosis gerd - Procedure EGD Vital Signs: Temp Pulse Resp BP Pulse Ox O2 Flow Rate 36.2 C L 62 20 113/78 100 05/03/23 07:30 05/03/23 07:30 05/03/23 07:30 05/03/23 07:30 05/03/23 07:30 Height: 5 ft 5 in Weight (kg): 111 kg Body Mass Index: 40.7 BMI Classification: Morbidly Obese - NPO >8 hours - Is Patient ?: No Home Medications and Allergies Allergies/Adverse Reactions: Allergies Allergy/AdvReac Type Severity Reaction Status Date / Time No Known Drug Allergies Allergy Verified 05/03/23 07:39 Anes History & Medical History - Anesthetic History Anesthesia Complications: reports: No previous complications - Medical History Cardiovascular: reports: Hypertension Pulmonary: reports: None Blood Disorders: reports: Anemia Smoking Status: Never smoker Exam General: Alert, Oriented x3 Dental: WNL Mouth Opening: Greater than 4 Fingerbreadths Neck Mobility: Normal Mallampati classification: II Thyromental Distance: greater than 6 cm Respiratory: Lungs clear Cardiovascular: Regular rate Plan Anesthesia Type: Total IV Consent for Procedure(s) Verified and Reviewed: Yes Code Status: Attempt Resuscitation ASA classification: 2-Mild systemic disease Is this case an emergency?: No
[2023-05-03] MEDS ORDERED: PROPOFOL 500 MG/50 ML 500 MG/50 ML VIAL ONE (08:17)
[2023-05-03 08:55] VITALS: BP 102/65
--- NOTE | 2023-05-03 12:55 | ANESTHESIA POST OP EVALUATION ---
Anesthesia Post Eval - Post Anesthesia Eval Vitals: Last Vital Signs Temp 36.3 C L 05/03/23 08:30 Pulse 59 L 05/03/23 08:49 Resp 16 05/03/23 08:49 BP 102/65 05/03/23 08:49 Pulse Ox 100 05/03/23 08:49 O2 Flow Rate CV Function Including HR & BP: Stable Pain Control: Satisfactory Nausea & Vomiting: Negative Mental Status: Baseline Respiratory Status: Airway Patent Hydration Status: Satisfactory Anesthesia Complications: None
== END 2023-05-03 07:25 | disposition home or self-care (01) ==
LOC: SDS 07:24
PROVIDERS: ATTEND Surgery
PROC: 0DB68ZX Excision of Stomach, Via Natural or Artificial Opening Endoscopic, Diagnostic (ICD-10-PCS; 2023-05-03)
PROC: 0DB48ZX Excision of Esophagogastric Junction, Via Natural or Artificial Opening Endoscopic, Diagnostic (ICD-10-PCS; principal; 2023-05-03 08:30)
DX: K21.9 Gastro-esophageal reflux disease without esophagitis (principal); R10.13 Epigastric pain; K29.50 Unspecified chronic gastritis without bleeding; E66.01 Morbid (severe) obesity due to excess calories; Z68.41 Body mass index [BMI] 40.0-44.9, adult; Z98.84 Bariatric surgery status
CPT/HCPCS: 43239; 81025; J7120

== ENCOUNTER 2023-08-23 08:00 | Outpatient (CLI) | payer OTHER, MEDICAID ==
[2023-08-23 16:24] LABS: BILIRUBIN,URINE NEGATIVE (NEGATIVE); GLUCOSE, URINE (UA) NEGATIVE (NEGATIVE); KETONES,URINE (UA) NEGATIVE (NEGATIVE); LEUKOCYTE ESTERASE, URINE NEGATIVE (NEGATIVE); NITRITE,URINE NEGATIVE (NEGATIVE); OCCULT BLOOD,URINE NEGATIVE (NEGATIVE); PROTEIN,URINE NEGATIVE (NEGATIVE); UROBILINOGEN,URINE 0.2 (NORMAL) E.U./dL (NORMAL)
[2023-08-23 16:27] LABS: CLARITY,URINE CLEAR (CLEAR)
[2023-08-23 16:36] LABS: BACTERIA,URINE None Seen /HPF (None Seen); RBC,URINE None Seen /HPF (0-5); SQUAMOUS EPITHELIAL CELL,UR FEW Squamous (<= Few); WBC,URINE 0-3 /HPF (0-5)
== END 2023-08-23 23:59 | disposition home or self-care (01) ==
LOC: LAB.WC 08:00
PROVIDERS: ATTEND Obstetrics & Gynecology
DX: O09.90 Supervision of high risk pregnancy, unspecified, unspecified trimester (principal)
CPT/HCPCS: 81001; 87077; 87086; 87181

== ENCOUNTER 2023-09-02 11:41 | Outpatient (CLI) | payer OTHER, MEDICAID ==
[2023-09-02 12:31] LABS: BASOPHILS % (AUTO) 0.5 %; EOSINOPHILS # (AUTO) 0.1 10^3/uL (0.0-0.7); EOSINOPHILS % (AUTO) 1.4 %; HCT - HEMATOCRIT 32.2 % (37.0-47.0); HGB - HEMOGLOBIN 10.7 g/dL (12.0-16.0); LYMPHOCYTES # (AUTO) 1.7 10^3/uL (1.5-3.5); LYMPHOCYTES % (AUTO) 38.3 %; MEAN CORPUSCULAR HEMOGLOBIN 28.1 pg (27.0-31.0); MEAN CORPUSCULAR HGB CONC 33.2 g/dL (32.0-36.0); MEAN CORPUSCULAR VOLUME 84.5 fL (81.0-99.0); MEAN PLATELET VOLUME 10.8 fL (7.9-10.8); MONOCYTES # (AUTO) 0.5 10^3/uL (0.0-1.0); MONOCYTES % (AUTO) 10.9 %; NEUTROPHILS # (AUTO) 2.1 10^3/uL (1.5-6.6); NEUTROPHILS % (AUTO) 48.7 %; PLT - PLATELET COUNT 220 10^3/uL (130-450); RED BLOOD COUNT 3.81 10^6/uL (4.20-5.40); RED CELL DISTRIBUTION WIDTH 13.1 % (12.0-15.0); WHITE BLOOD COUNT 4.3 x10^3/uL (4.8-10.8)
--- NOTE | 2023-09-02 14:07 | Ultrasound Report ---
PROCEDURE: OB First Trimester w/TV INDICATIONS: POSITIVE TEST OUTSIDE/PRIOR DATING DATA: Last menstrual period (LMP): 07/12/2023. LMP-based estimated date of delivery (JF): 04/17/2024. First dating scan (date and location): 09/02/2023. Estimated date of delivery (JF) from first dating scan: 04/17/2024. TECHNIQUE: Real-time scanning was performed of the fetus and maternal pelvic organs, with image documentation. Endovaginal scanning was also performed to better visualize the fetus and maternal ovaries. COMPARISON: None. FINDINGS: Intrauterine gestational sac present. Embryo: Willis-rump length 1.2 cm, corresponds with a 7 week 3 day Heart rate: 155 bpm. Other: No perigestational fluid collection. Measurement variability in dating: +/- 4 weeks by LMP, +/- 7 days by mean sac diameter (use before 6 weeks gestation if crown-rump length not able to be measured), +/- 5 days by crown-rump length (6-12 weeks gestation). Maternal organs: Ovaries appear within normal limits. IMPRESSION: Single live intrauterine consistent with 7 week 3 day gestation Reviewed by: Hever Espino MD on 09/02/2023 1:06 PM [facility] Approved by: Hever Espino MD on 09/02/2023 1:06 PM [facility] Station ID: [id number]
[2023-09-03 04:09] LABS: HBsAG SCREEN Negative (Negative); RPR Non Reactive (Non Reactive)
[2023-09-03 07:10] LABS: HCV AB Non Reactive (Non Reactive); HIV SCREEN 4TH GENERATION Non Reactive (Non Reactive)
[2023-09-03 08:10] LABS: VARICELLA-ZOSTER AB IGG 867 index (Immune >165)
== END 2023-09-02 11:42 | disposition home or self-care (01) ==
LOC: DI 11:41
PROVIDERS: ATTEND Obstetrics & Gynecology
DX: O09.91 Supervision of high risk pregnancy, unspecified, first trimester (principal); Z36.89 Encounter for other specified antenatal screening; Z3A.01 Less than 8 weeks gestation of pregnancy
CPT/HCPCS: 36415; 85025; 86592; 86762; 86787; 86803; 86850; 86900; 86901; 87340; 87389

== ENCOUNTER 2023-10-04 11:36 | Outpatient (CLI) | payer OTHER, MEDICAID ==
[2023-10-04 13:23] LABS: ALBUMIN 3.8 g/dL (3.2-5.5); ALBUMIN/GLOBULIN RATIO 1.7 (1.0-2.2); BILIRUBIN,TOTAL 0.3 mg/dL (0.2-1.0); CALCIUM 8.9 mg/dL (8.5-10.3); CREATININE 0.6 mg/dL (0.6-1.3); POTASSIUM 3.7 mmol/L (3.5-4.5)
[2023-10-04 14:11] LABS: CREATININE,URINE 20.9 mg/dL; TOTAL PROTEIN,URINE TIMED < 4 mg/dL
== END 2023-10-04 11:37 | disposition home or self-care (01) ==
LOC: LAB 11:36
PROVIDERS: ATTEND Obstetrics & Gynecology
DX: O09.90 Supervision of high risk pregnancy, unspecified, unspecified trimester (principal); Z86.32 Personal history of gestational diabetes
CPT/HCPCS: 36415; 80053; 82570; 82950; 84156

== ENCOUNTER 2023-11-16 06:40 | Outpatient (CLI) | payer OTHER, MEDICAID ==
--- NOTE | 2023-11-16 09:55 | Ultrasound Report ---
PROCEDURE: OB Anatomy Scan INDICATIONS: SUPERVISION OF OUTSIDE/PRIOR DATING DATA: Last menstrual period (LMP): 07/12/2023 LMP-based estimated date of delivery (JF): 04/17/2024. First dating scan (date and location): 09/02/2023. Estimated date of delivery (JF) from first dating scan: 04/17/2024. TECHNIQUE: Real-time scanning was performed of the fetus, with image documentation and biometric measurements. COMPARISON: 09/02/2023 FINDINGS: General: A single living intrauterine gestation is present. Presentation: Breech Placenta: Placental position is anterior, without previa. Amniotic fluid index: 12.3 cm, within normal limits for gestational age. heart rate: 158 beats per minute. Maternal cervical canal: 4.3 cm long; normal length is 2.5 cm or more. biometrics: Biparietal diameter: 4.2 cm, 75th percentile, 18 weeks and 5 days Head circumference: 16 cm, 76 percentile, 18 weeks and 6 days Abdominal circumference: 14 cm, 84th percentile, 19 weeks and 2 days Femur length: 3 cm, 85th percentile, 19 weeks and 2 days Estimated gestational age from initial scan: 18 weeks and 1 day Composite gestational age from present scan: 19 weeks Estimated weight and percentile: 283 g, 97th percentile Measurement variability in biometric dating: +/- 10 days from 12-20 weeks gestation, +/- 2 weeks from 20-30 weeks gestation, +/- 3 weeks at 30 weeks gestation or later. Anatomic survey: Neuro: Ventricles are normal at less than 10 mm. Cisterna magna is normal at 3-11 mm. Cerebellum is normal in size and morphology. Nuchal skin fold: Normal at less than 6 mm between 14 and 20 weeks gestational age. Face: Nose and lips, facial profile are normal. Spine: No evidence for spina bifida. Heart: 4-chambered heart is present, with normal ventricular outflow tracts. Diaphragm: Diaphragm is intact. Stomach: Left-sided stomach is present. Kidneys: No hydronephrosis. Normal is less than 5 mm in 2nd trimester, less than 7 mm in 3rd trimester. Cord: 3 vessel cord has orthotopic insertion. Bladder: Normal in size. Extremities: All 4 extremities are visualized. IMPRESSION: Living intrauterine gestation at 18 weeks and 1 day. EFW is currently at the 97th percentile. Normal fluid. Routine anatomic survey without significant abnormalities. (Please note, anatomic survey prior to 20 weeks of gestational age can have reduced sensitivity if th ere are subtle abnormalities.) Consider follow-up if clinically indicated. Reviewed by: Collin Meyer MD on 11/16/2023 9:54 AM [facility] Approved by: Collin Meyer MD on 11/16/2023 9:54 AM [facility] Station ID: [id number]
== END 2023-11-16 06:41 | disposition home or self-care (01) ==
LOC: DI 06:40
PROVIDERS: ATTEND Obstetrics & Gynecology
DX: O09.92 Supervision of high risk pregnancy, unspecified, second trimester (principal); Z3A.18 18 weeks gestation of pregnancy

== ENCOUNTER 2023-11-26 08:26 | Outpatient (CLI) | payer OTHER, MEDICAID ==
[2023-11-26 08:59] LABS: GTT GLUCOSE,FASTING 91 mg/dL (74-109)
== END 2023-11-26 08:27 | disposition home or self-care (01) ==
LOC: LAB 08:26
PROVIDERS: ATTEND Obstetrics & Gynecology
DX: O99.810 Abnormal glucose complicating pregnancy (principal)
CPT/HCPCS: 36415; 82951; 82952

== ENCOUNTER 2023-12-05 12:38 | Outpatient (CLI) | payer OTHER, MEDICAID ==
--- NOTE | 2023-12-05 18:28 | Ultrasound Report ---
PROCEDURE: Soft Tissue Head or Neck INDICATIONS: CHANGE IN VOICE, SCREENING FOR THYROID DISORDER TECHNIQUE: Real-time scanning was performed of the thyroid gland, with image documentation. COMPARISON: None FINDINGS: Right: Thyroid lobe measures 4.8 x 1.4 x 1.7 cm, and is homogeneous in echotexture. Left: Thyroid lobe measures 4.8 x 1.7 x 1.8 cm, and is homogenous in echotexture. Isthmus: 0.6 cm thick. No thyroid nodules. IMPRESSION: Thyroid gland is unremarkable. Reviewed by: Fawn Maria MD on 12/05/2023 6:27 PM PST Approved by: Fawn Maria MD on 12/05/2023 6:27 PM PST Station ID: [id number]
== END 2023-12-05 12:39 | disposition home or self-care (01) ==
LOC: DI 12:38
PROVIDERS: ATTEND Nurse Practitioner Family
DX: Z13.29 Encounter for screening for other suspected endocrine disorder (principal); R49.9 Unspecified voice and resonance disorder

== ENCOUNTER 2024-01-24 13:35 | Outpatient (CLI) | payer OTHER, MEDICAID ==
--- NOTE | 2024-01-24 17:51 | Ultrasound Report ---
PROCEDURE: OB Follow up INDICATIONS: CHRONIC HTN COMPLICATING PREG OUTSIDE/PRIOR DATING DATA: Last menstrual period (LMP): 07/12/2023. LMP-based estimated date of delivery (JF): 04/17/2024. First dating scan (date and location): 09/02/2023. Estimated date of delivery (JF) from first dating scan: 04/17/2024. The below data below was generated using the LMP JF of 04/17/2024 TECHNIQUE: Real-time scanning was performed of the fetus, with image documentation and biometric measurements. Endovaginal scanning: Not performed. COMPARISON: 11/16/2023 FINDINGS: General: A single living intrauterine gestation is present. Presentation: Vertex Placenta: Placental position is anterior, without previa. Amniotic fluid index: 13.9 cm cm, within normal limits for gestational age. Largest vertical pocket measures 4.2 cm heart rate: 135 beats per minute. Maternal cervical canal: 4.4 cm long; normal length is 2.5 cm or more. biometrics: Biparietal diameter: 7.39 cm: 29 weeks and 5 days, 86.5 percentile Head circumference: 27.34 cm: 29 weeks and 6 days, 76th percentile Abdominal circumference: 24.69 cm: 28 weeks and 6 days, 71st percentile Femur length: 5.52 cm: 29 weeks and 1 day, 68th percentile Estimated gestational age from initial scan: 28 weeks and 0 days Composite gestational age from present scan: 29 weeks and 3 days Estimated weight and percentile: 1340 g which correlates with the 80th percentile Measurement variability in biometric dating: +/- 10 days from 12-20 weeks gestation, +/- 2 weeks from 20-30 weeks gestation, +/- 3 weeks at 30 weeks gestation or more. Other: Not applicable. IMPRESSION: Single living intrauterine gestation with estimated sonographic gestational age of appro ximately 29 weeks and 3 days with estimated weight of approximately 1340 g correlating with the 80th percentile based off gestational age. Expected interval growth has occurred. Four-quadrant SOURAV measuring 13.9 cm with largest vertical pocket measuring 4.2 cm. This measures at t he 41st percentile for gestational age. Reviewed by: Joe Tate MD on 01/24/2024 4:50 PM [facility] Approved by: Joe Tate MD on 01/24/2024 4:50 PM [facility] Station ID: [id number]
== END 2024-01-24 13:36 | disposition home or self-care (01) ==
LOC: DI 13:35
PROVIDERS: ATTEND Obstetrics & Gynecology
DX: O16.3 Unspecified maternal hypertension, third trimester (principal); Z3A.29 29 weeks gestation of pregnancy

== ENCOUNTER 2024-02-02 13:30 | Outpatient (CLI) | payer OTHER, MEDICAID ==
[2024-02-02 17:45] LABS: HCT - HEMATOCRIT 28.1 % (37.0-47.0); HGB - HEMOGLOBIN 8.9 g/dL (12.0-16.0); MEAN CORPUSCULAR HEMOGLOBIN 26.9 pg (27.0-31.0); MEAN CORPUSCULAR HGB CONC 31.7 g/dL (32.0-36.0); MEAN CORPUSCULAR VOLUME 84.9 fL (81.0-99.0); MEAN PLATELET VOLUME 12.1 fL (7.9-10.8); RED BLOOD COUNT 3.31 10^6/uL (4.20-5.40); WHITE BLOOD COUNT 6.1 x10^3/uL (4.8-10.8)
[2024-02-02 20:48] LABS: ESTIMATED AVERAGE GLUCOSE 114 mg/dL (70-100); HEMOGLOBIN A1c% 5.6 % (4.27-6.07)
== END 2024-02-02 13:31 | disposition home or self-care (01) ==
LOC: LAB.N 13:30
PROVIDERS: ATTEND Obstetrics & Gynecology
DX: O09.892 Supervision of other high risk pregnancies, second trimester (principal); O99.810 Abnormal glucose complicating pregnancy; Z90.3 Acquired absence of stomach [part of]
CPT/HCPCS: 36415; 82306; 82728; 83036; 85027

== ENCOUNTER 2024-02-24 12:55 | Outpatient (CLI) | payer OTHER, MEDICAID ==
[2024-02-24 13:15] VITALS: BP 111/68
--- NOTE | 2024-02-29 16:19 | PROCEDURE REPORT ---
- HPI Diagnosis/Indication for NST: Pre- Hypertension Current EDU 04/17/24 Gestation 32 Weeks and 3 Days 9 Para 4 Vital Signs Temperature 98.1 F 02/24/24 13:03 Heart Rate 16 L 02/24/24 13:03 Respiratory Rate 113 H 02/24/24 13:03 Blood Pressure 111/68 02/24/24 13:03 Temperature 98.1 F 02/24/24 13:03 Heart Rate 16 L 02/24/24 13:03 Respiratory Rate 113 H 02/24/24 13:03 Blood Pressure 111/68 02/24/24 13:03 O2 Saturation If not protocol: Oxygen Flow, liters/minute - NST Procedure NST Procedure Start Date 02/24/24 Start Time 13:08 Stop Time 14:28 Vibroacoustic Stimulation Used No Patient States Movement Yes - Results and Plan Findings/Impression: Reactive for of 32 weeks gestation or more. NST tracing contains at least two heart rate accelerations that are at least 15 beats per minute above the baseline rate and lasting at least 15 seconds from onset to return to baseline within a twenty minute period. Plan: care as scheduled
== END 2024-02-24 14:40 | disposition home or self-care (01) ==
LOC: WFO 12:55 → FBP 12:59 → WFO 14:40
PROVIDERS: ATTEND Obstetrics & Gynecology
DX: O10.913 Unspecified pre-existing hypertension complicating pregnancy, third trimester (principal); Z3A.32 32 weeks gestation of pregnancy
CPT/HCPCS: 59025

== ENCOUNTER 2024-02-24 14:38 | Outpatient (CLI) | payer OTHER, MEDICAID | END 2024-02-24 14:39 | disposition home or self-care (01) | LOC: DI 14:38 | PROVIDERS: ATTEND Obstetrics & Gynecology | DX: Z53.9 Procedure and treatment not carried out, unspecified reason (principal) ==

== ENCOUNTER 2024-02-24 14:46 | Outpatient (CLI) | payer OTHER, MEDICAID ==
--- NOTE | 2024-02-24 19:57 | Ultrasound Report ---
PROCEDURE: OB Follow up INDICATIONS: CHRONIC HYPERTENSION COMPLICATING OUTSIDE/PRIOR DATING DATA: Last menstrual period (LMP): 07/12/2023. LMP-based estimated date of delivery (JF): 04/17/2024. First dating scan (date and location): 09/02/2023. Estimated date of delivery (JF) from first dating scan: 04/17/2024. The below data below was generated using the clinical JF of 04/17/2024 TECHNIQUE: Real-time scanning was performed of the fetus, with image documentation and biometric measurements. Endovaginal scanning: Not performed. COMPARISON: 01/24/2024 FINDINGS: General: A single living intrauterine gestation is present. Presentation: Vertex Placenta: Placental position is anterior, without previa. Amniotic fluid index: 12.8 cm, within normal limits for gestational age. heart rate: 129 beats per minute. Maternal cervical canal: 3.5 cm long; normal length is 2.5 cm or more. biometrics: Biparietal diameter: 8.3 cm, 33 weeks 4 days, 74 percentile Head circumference: 29.5 cm, 32 weeks 5 days, 20 percentile Abdominal circumference: 28.1 cm, 32 weeks 1 day, 43 percentile Femur length: 6.5 cm, 33 weeks 4 days, 68 percentile Estimated gestational age from initial scan: 32 weeks 3 days Composite gestational age from present scan: 33 weeks 0 days Estimated weight and percentile: 2044 g, 51st percentile Measurement variability in biometric dating: +/- 10 days from 12-20 weeks gestation, +/- 2 weeks from 20-30 weeks gestation, +/- 3 weeks at 30 weeks gestation or more. Other: Chest/diaphragm, stomach/abdomen, renal regions and urinary bladder appear within normal limit s. IMPRESSION: Single living intrauterine at 32 weeks 3 days, JF of 04/17/2024. Estimated weight of 2045 g, 51st percentile. SOURAV of 12.8 cm, within normal limits. Reviewed by: Feliberto Fermin MD on 02/24/2024 7:56 PM PDT Approved by: Feliberto Fermin MD on 02/24/2024 7:56 PM PDT Station ID: [id number]
== END 2024-02-24 14:47 | disposition home or self-care (01) ==
LOC: DI 14:46
PROVIDERS: ATTEND Obstetrics & Gynecology
DX: O16.3 Unspecified maternal hypertension, third trimester (principal); Z3A.32 32 weeks gestation of pregnancy

== ENCOUNTER 2024-02-28 11:41 | Outpatient (CLI) | payer OTHER, MEDICAID ==
[2024-02-28 12:10] VITALS: O2SAT 99
[2024-02-28 13:10] VITALS: BP 116/63
--- NOTE | 2024-02-28 16:50 | PROCEDURE REPORT ---
- HPI Current EDU 04/17/24 Gestation 33 Weeks and 0 Days 9 Para 4 Vital Signs Temperature 98.6 F 02/28/24 12:06 Heart Rate 90 02/28/24 12:06 Respiratory Rate 18 02/28/24 12:06 Blood Pressure 109/72 02/28/24 12:06 O2 Saturation 99 02/28/24 12:06 Temperature 98.6 F 02/28/24 13:08 Heart Rate 79 02/28/24 13:08 Respiratory Rate 20 02/28/24 13:08 Blood Pressure 116/63 02/28/24 13:08 O2 Saturation 99 02/28/24 12:06 If not protocol: Oxygen Flow, liters/minute - NST Procedure NST Procedure Start Date 02/28/24 Start Time 12:02 Stop Time 12:54 Vibroacoustic Stimulation Used No Patient States Movement Yes - Results and Plan Plan: Patient is a 28-year-old -0-4-4 here for NST. NST Performed 02/28/2024 NST Read 02/28/2024 FHT: 130 bpm baseline, moderate variability, accelerations present, no decelerations. Reactive NST [place]: Quiescent Diagnosis 33 weeks gestation Chronic hypertension Continue with scheduled OB care
== END 2024-02-28 13:00 | disposition home or self-care (01) ==
LOC: WFO 11:41 → FBP 11:55 → WFO 13:00
PROVIDERS: ATTEND Obstetrics & Gynecology
DX: O16.3 Unspecified maternal hypertension, third trimester (principal); Z3A.33 33 weeks gestation of pregnancy
CPT/HCPCS: 59025; 99213; 99214

== ENCOUNTER 2024-03-02 11:40 | Outpatient (CLI) | payer OTHER, MEDICAID ==
--- NOTE | 2024-03-03 01:36 | Ultrasound Report ---
PROCEDURE: OB Limited INDICATIONS: HYPERTENSION OUTSIDE/PRIOR DATING DATA: Last menstrual period (LMP): 07/12/2023. LMP-based estimated date of delivery (FJ): 04/17/2024. First dating scan (date and location): 09/02/2023. Estimated date of delivery (JF) from first dating scan: 04/17/2024. The below data below was generated using the clinical JF of 04/17/2024 TECHNIQUE: Real-time scanning was performed of the fetus, with image documentation. Endovaginal scanning: Not performed. COMPARISON: OB ultrasound 02/24/2024. FINDINGS: A single living intrauterine gestation is present. Presentation: Vertex Placenta: Placental position is anterior, without previa. Amniotic fluid index: 11.3 cm, normal for gestational age. Largest pocket 3.9 cm. heart rate: 129 beats per minutes. Maternal cervical canal: 3.4 cm long; normal length is 2.5 cm or more. Estimated gestational age from initial scan: 33 weeks 3 days. IMPRESSION: 1. Carl living intrauterine at 33 weeks 3 days based on prior dating. Vertex position. 2. Normal placenta and amniotic fluid. Reviewed by: Tk Martinez MD on 03/03/2024 1:35 AM PDT Approved by: Tk Martinez MD on 03/03/2024 1:35 AM PDT Station ID: [id number]
== END 2024-03-02 11:41 | disposition home or self-care (01) ==
LOC: DI 11:40
PROVIDERS: ATTEND Obstetrics & Gynecology
DX: O16.3 Unspecified maternal hypertension, third trimester (principal); Z3A.33 33 weeks gestation of pregnancy

== ENCOUNTER 2024-03-02 12:02 | Outpatient (CLI) | payer OTHER, MEDICAID ==
[2024-03-02 13:01] VITALS: BP 112/78
--- NOTE | 2024-03-05 22:14 | PROCEDURE REPORT ---
- HPI Diagnosis/Indication for NST: Pre- Hypertension Current EDU 04/17/24 Gestation 33 Weeks and 3 Days 5 Para 4 Vital Signs Temperature 211.3 F H 03/02/24 12:50 Heart Rate 78 03/02/24 12:50 Respiratory Rate 20 03/02/24 12:50 Blood Pressure 112/78 03/02/24 12:50 Temperature 211.3 F H 03/02/24 12:50 Heart Rate 78 03/02/24 12:50 Respiratory Rate 20 03/02/24 12:50 Blood Pressure 112/78 03/02/24 12:50 O2 Saturation If not protocol: Oxygen Flow, liters/minute - NST Procedure NST Procedure Start Date 03/02/24 Start Time 12:18 Stop Time 13:14 Vibroacoustic Stimulation Used No Patient States Movement Yes - Results and Plan Findings/Impression: Reactive for of 32 weeks gestation or more. NST tracing contains at least two heart rate accelerations that are at least 15 beats per minute above the baseline rate and lasting at least 15 seconds from onset to return to baseline within a twenty minute period. Plan: care as scheduled
== END 2024-03-02 13:20 | disposition home or self-care (01) ==
LOC: WFO 12:02 → FBP 12:48 → WFO 13:20
PROVIDERS: ATTEND Obstetrics & Gynecology
DX: O10.913 Unspecified pre-existing hypertension complicating pregnancy, third trimester (principal); Z3A.33 33 weeks gestation of pregnancy
CPT/HCPCS: 59025

== ENCOUNTER 2024-03-06 11:28 | Outpatient (CLI) | payer OTHER, MEDICAID ==
[2024-03-06 11:53] VITALS: BP 115/82
--- NOTE | 2024-03-06 12:35 | PROCEDURE REPORT ---
- HPI Diagnosis/Indication for NST: Other (Chronic hypertension) Vital Signs Temperature 98.3 F 03/06/24 11:34 Heart Rate 99 03/06/24 11:34 Respiratory Rate 17 03/06/24 11:34 Blood Pressure 115/82 H 03/06/24 11:34 Temperature 98.3 F 03/06/24 11:34 Heart Rate 99 03/06/24 11:34 Respiratory Rate 17 03/06/24 11:34 Blood Pressure 115/82 H 03/06/24 11:34 O2 Saturation If not protocol: Oxygen Flow, liters/minute - NST Procedure NST Procedure Start Time 12:18 Stop Time 13:14 EFM: 130s, moderate variability, positive 15x15 accelerations, no decelerations [place]: no contractions NST reactive/Cat 1 Performed and read 03/06/24 - Results and Plan Plan: 28yo at 34w presenting for scheduled NST for chronic hypertension - NST reactive - Follow up at [facility] today
== END 2024-03-06 12:15 | disposition home or self-care (01) ==
LOC: WFO 11:28 → FBP 11:29 → WFO 12:15
PROVIDERS: ATTEND Obstetrics & Gynecology
DX: O16.3 Unspecified maternal hypertension, third trimester (principal); Z3A.34 34 weeks gestation of pregnancy
CPT/HCPCS: 59025

== ENCOUNTER 2024-03-09 11:42 | Outpatient (CLI) | payer OTHER, MEDICAID ==
--- NOTE | 2024-03-09 14:38 | Ultrasound Report ---
PROCEDURE: OB Limited INDICATIONS: HYPERTENSION OUTSIDE/PRIOR DATING DATA: Last menstrual period (LMP): 07/12/2023. LMP-based estimated date of delivery (JF): 04/17/2024. First dating scan (date and location): 09/02/2023. Estimated date of delivery (JF) from first dating scan: 04/17/2024. The below data below was generated using the JF of 04/17/2024 TECHNIQUE: Real-time scanning was performed of the fetus, with image documentation. Endovaginal scanning: Not performed COMPARISON: OB ultrasound 03/02/2024 FINDINGS: A single living intrauterine gestation is present. Presentation: Vertex Placenta: Placental position is anterior, without previa. Amniotic fluid index: 10.7 cm, normal for gestational age. heart rate: 147 beats per minutes. Maternal cervical canal: 5.4 cm long; normal length is 2.5 cm or more. Estimated gestational age from initial scan: 34 weeks 3 days. IMPRESSION: 1.Single live intrauterine at 34 weeks 3 days gestation. 2.Amniotic fluid index is within normal limits at 10.7 cm. Reviewed by: Rufus Gorman MD on 03/09/2024 2:36 PM PDT Approved by: Rufus Gorman MD on 03/09/2024 2:36 PM PDT Station ID: [id number]
== END 2024-03-09 11:43 | disposition home or self-care (01) ==
LOC: DI 11:42
PROVIDERS: ATTEND Obstetrics & Gynecology
DX: O10.913 Unspecified pre-existing hypertension complicating pregnancy, third trimester (principal); Z3A.34 34 weeks gestation of pregnancy

== ENCOUNTER 2024-03-09 12:07 | Outpatient (CLI) | payer OTHER, MEDICAID ==
[2024-03-09 12:35] VITALS: BP 120/78
--- NOTE | 2024-03-09 17:16 | PROCEDURE REPORT ---
- HPI Diagnosis/Indication for NST: Pre- Hypertension Current EDU 04/17/24 Gestation 34 Weeks and 3 Days 9 Para 4 Vital Signs Temperature 98.2 F 03/09/24 12:14 Heart Rate 102 H 03/09/24 12:14 Respiratory Rate 18 03/09/24 12:14 Blood Pressure 120/78 03/09/24 12:14 Temperature 98.2 F 03/09/24 12:14 Heart Rate 102 H 03/09/24 12:14 Respiratory Rate 18 03/09/24 12:14 Blood Pressure 120/78 03/09/24 12:14 O2 Saturation If not protocol: Oxygen Flow, liters/minute - NST Procedure NST Procedure Start Date 03/09/24 Start Time 12:20 Stop Time 12:49 Vibroacoustic Stimulation Used No - Results and Plan Findings/Impression: Reactive for of 32 weeks gestation or more. NST tracing contains at least two heart rate accelerations that are at least 15 beats per minute above the baseline rate and lasting at least 15 seconds from onset to return to baseline within a twenty minute period. Plan: as scheduled
== END 2024-03-09 12:55 | disposition home or self-care (01) ==
LOC: WFO 12:07 → FBP 12:10 → WFO 12:55
PROVIDERS: ATTEND Obstetrics & Gynecology
DX: O10.913 Unspecified pre-existing hypertension complicating pregnancy, third trimester (principal); Z3A.34 34 weeks gestation of pregnancy
CPT/HCPCS: 59025

== ENCOUNTER 2024-03-13 11:43 | Outpatient (CLI) | payer OTHER, MEDICAID ==
[2024-03-13 12:12] VITALS: BP 135/84
--- NOTE | 2024-03-13 18:23 | PROCEDURE REPORT ---
- HPI Vital Signs Temperature 98.4 F 03/13/24 12:04 Heart Rate 94 03/13/24 12:04 Respiratory Rate 16 03/13/24 12:04 Blood Pressure 135/84 H 03/13/24 12:04 Temperature 98.4 F 03/13/24 12:04 Heart Rate 94 03/13/24 12:04 Respiratory Rate 16 03/13/24 12:04 Blood Pressure 135/84 H 03/13/24 12:04 O2 Saturation If not protocol: Oxygen Flow, liters/minute - NST Procedure NST Procedure Start Date 03/13/24 Start Time 12:26 Stop Time 13:08 Vibroacoustic Stimulation Used No - Results and Plan Plan: Patient is a patient is a 28-year-old -0-4-4 at 35 weeks gestation here for NST. NST Performed 03/13/24 NST Read 03/13/24 FHT: 125 bpm baseline, moderate variability, accelerations present, no decelerations. Reactive NST [place]: Quiescent Diagnosis 35 weeks gestation Chronic hypertension Continue with scheduled OB care
== END 2024-03-13 13:15 | disposition home or self-care (01) ==
LOC: WFO 11:43 → FBP 11:44 → WFO 13:15
PROVIDERS: ATTEND Obstetrics & Gynecology
DX: O16.9 Unspecified maternal hypertension, unspecified trimester (principal); Z3A.35 35 weeks gestation of pregnancy
CPT/HCPCS: 59025

== ENCOUNTER 2024-03-16 12:59 | Outpatient (CLI) | payer OTHER, MEDICAID ==
--- NOTE | 2024-03-16 15:19 | Ultrasound Report ---
PROCEDURE: OB Limited INDICATIONS: HYPERTENSION OUTSIDE/PRIOR DATING DATA: Last menstrual period (LMP): 07/12/2023. LMP-based estimated date of delivery (JF): 04/17/2024. First dating scan (date and location): 09/02/2023. Estimated date of delivery (JF) from first dating scan: 04/17/2024. The below data below was generated using the JF of 04/17/2024 TECHNIQUE: Real-time scanning was performed of the fetus, with image documentation and biometric measurements. Endovaginal scanning: Not performed. COMPARISON: 03/09/2024 FINDINGS: General: A single living intrauterine gestation is present. Presentation: Vertex Placenta: Placental position is anterior, without previa. Amniotic fluid index: 11.4 cm, within normal limits for gestational age. heart rate: 143 beats per minute. Maternal cervical canal: 3.8 cm long; normal length is 2.5 cm or more. biometrics: Biparietal diameter: 8.8 cm, 35 weeks 4 days Head circumference: 32.1 cm, 36 weeks 2 days Abdominal circumference: 33.7 cm, 37 weeks 5 days Femur length: 7.5 cm, 38 weeks 1 day Estimated gestational age from initial scan: 35 weeks 3 days Composite gestational age from present scan: 37 weeks 0 days Estimated weight and percentile: 3190 g, 93rd percentile Measurement variability in biometric dating: +/- 10 days from 12-20 weeks gestation, +/- 2 weeks from 20-30 weeks gestation, +/- 3 weeks at 30 weeks gestation or more. Other: Not applicable. IMPRESSION: 1.Single live intrauterine consistent with 37 weeks and 0 days. 2.Estimated weight is in the 93rd percentile. Reviewed by: Chad Hopper MD on 03/16/2024 3:17 PM PDT Approved by: Chad Hopper MD on 03/16/2024 3:17 PM PDT Station ID: [id number]
== END 2024-03-16 13:00 | disposition home or self-care (01) ==
LOC: DI 12:59
PROVIDERS: ATTEND Obstetrics & Gynecology
DX: O16.3 Unspecified maternal hypertension, third trimester (principal); Z3A.37 37 weeks gestation of pregnancy

== ENCOUNTER 2024-03-16 13:00 | Outpatient (CLI) | payer OTHER, MEDICAID ==
--- NOTE | 2024-03-16 15:18 | Ultrasound Report ---
PROCEDURE: OB Follow up INDICATIONS: HYPERTENSION OUTSIDE/PRIOR DATING DATA: Last menstrual period (LMP): 07/12/2023. LMP-based estimated date of delivery (JF): 04/17/2024. First dating scan (date and location): 09/02/2023. Estimated date of delivery (JF) from first dating scan: 04/17/2024. The below data below was generated using the JF of 04/17/2024 TECHNIQUE: Real-time scanning was performed of the fetus, with image documentation and biometric measurements. Endovaginal scanning: Not performed. COMPARISON: 03/09/2024 FINDINGS: General: A single living intrauterine gestation is present. Presentation: Vertex Placenta: Placental position is anterior, without previa. Amniotic fluid index: 11.4 cm, within normal limits for gestational age. heart rate: 143 beats per minute. Maternal cervical canal: 3.8 cm long; normal length is 2.5 cm or more. biometrics: Biparietal diameter: 8.8 cm, 35 weeks 4 days Head circumference: 32.1 cm, 36 weeks 2 days Abdominal circumference: 33.7 cm, 37 weeks 5 days Femur length: 7.5 cm, 38 weeks 1 day Estimated gestational age from initial scan: 35 weeks 3 days Composite gestational age from present scan: 37 weeks 0 days Estimated weight and percentile: 3190 g, 93rd percentile Measurement variability in biometric dating: +/- 10 days from 12-20 weeks gestation, +/- 2 weeks from 20-30 weeks gestation, +/- 3 weeks at 30 weeks gestation or more. Other: Not applicable. IMPRESSION: 1.Single live intrauterine consistent with 37 weeks and 0 days. 2.Estimated weight is in the 93rd percentile. Reviewed by: Chad Hopper MD on 03/16/2024 3:17 PM PDT Approved by: Chad Hopper MD on 03/16/2024 3:17 PM PDT Station ID: [id number]
== END 2024-03-16 13:01 | disposition home or self-care (01) ==
LOC: DI 13:00
PROVIDERS: ATTEND Obstetrics & Gynecology
DX: O16.3 Unspecified maternal hypertension, third trimester (principal); Z3A.37 37 weeks gestation of pregnancy

== ENCOUNTER 2024-03-16 13:03 | Outpatient (CLI) | payer OTHER, MEDICAID ==
[2024-03-16 13:56] VITALS: BP 110/71; O2SAT 99
--- NOTE | 2024-03-17 08:51 | PROCEDURE REPORT ---
- HPI Diagnosis/Indication for NST: Pre- Hypertension Current EDU 04/17/24 Gestation 35 Weeks and 3 Days 9 Para 4 Vital Signs Temperature 98.1 F 03/16/24 13:13 Heart Rate 86 03/16/24 13:13 Respiratory Rate 17 03/16/24 13:13 Blood Pressure 110/71 03/16/24 13:13 O2 Saturation 99 03/16/24 13:13 Temperature 98.1 F 03/16/24 13:13 Heart Rate 86 03/16/24 13:13 Respiratory Rate 17 03/16/24 13:13 Blood Pressure 110/71 03/16/24 13:13 O2 Saturation 99 03/16/24 13:13 If not protocol: Oxygen Flow, liters/minute - NST Procedure NST Procedure Start Date 03/16/24 Start Time 13:15 Stop Time 13:42 Vibroacoustic Stimulation Used No - Results and Plan Findings/Impression: Reactive for of 32 weeks gestation or more. NST tracing contains at least two heart rate accelerations that are at least 15 beats per minute above the baseline rate and lasting at least 15 seconds from onset to return to baseline within a twenty minute period. Plan: care as scheduled
== END 2024-03-16 13:53 | disposition home or self-care (01) ==
LOC: WFO 13:03 → FBP 13:05 → WFO 13:53
PROVIDERS: ATTEND Obstetrics & Gynecology
DX: O10.913 Unspecified pre-existing hypertension complicating pregnancy, third trimester (principal); Z3A.37 37 weeks gestation of pregnancy
CPT/HCPCS: 59025

== ENCOUNTER 2024-03-20 08:00 | Outpatient (CLI) | payer OTHER, MEDICAID | END 2024-03-20 23:59 | disposition home or self-care (01) | LOC: LAB.WC 08:00 | PROVIDERS: ATTEND Obstetrics & Gynecology | DX: Z36.85 Encounter for antenatal screening for Streptococcus B (principal) | CPT/HCPCS: 87797 ==

== ENCOUNTER 2024-03-20 12:09 | Outpatient (CLI) | payer OTHER, MEDICAID ==
[2024-03-20 12:26] VITALS: BP 128/71
--- NOTE | 2024-03-20 13:34 | PROCEDURE REPORT ---
- HPI Diagnosis/Indication for NST: Gestational Hypertension (CHTN) Vital Signs Temperature 97.9 F 03/20/24 12:16 Heart Rate 92 03/20/24 12:16 Respiratory Rate 16 03/20/24 12:16 Blood Pressure 128/71 03/20/24 12:16 Temperature 97.9 F 03/20/24 12:16 Heart Rate 92 03/20/24 12:16 Respiratory Rate 16 03/20/24 12:16 Blood Pressure 128/71 03/20/24 12:16 O2 Saturation If not protocol: Oxygen Flow, liters/minute - NST Procedure NST Procedure Start Date 03/20/24 Start Time 12:20 Stop Time 12:48 Vibroacoustic Stimulation Used No EFM: 130s, moderate variability, positive accelerations 15x15, no decelerations [place]: one contraction NST reactive/Cat 1 Performed and read 03/20/24 - Results and Plan Plan: 28yo at 36w presenting for scheduled NST for CHTN - NST reactive - Discharge, she has appointment to follow in the office today
== END 2024-03-20 12:50 | disposition home or self-care (01) ==
LOC: WFO 12:09 → FBP 12:10 → WFO 12:50
PROVIDERS: ATTEND Obstetrics & Gynecology
DX: O13.3 Gestational [pregnancy-induced] hypertension without significant proteinuria, third trimester (principal); Z36.85 Encounter for antenatal screening for Streptococcus B; Z3A.36 36 weeks gestation of pregnancy
CPT/HCPCS: 59025; 87797

== ENCOUNTER 2024-03-23 16:11 | Outpatient (CLI) | payer OTHER, MEDICAID ==
[2024-03-23 16:52] VITALS: BP 123/75; O2SAT 100
--- NOTE | 2024-03-23 20:57 | PROVIDER PROGRESS NOTE ---
- HPI Chief Complaint: Hypertension/PIH Current : Current EDU 04/17/24 Gestation 36 Weeks and 3 Days 9 Para 4 Vital Signs Temperature 98.2 F 03/23/24 16:20 Heart Rate 92 03/23/24 16:20 Respiratory Rate 17 03/23/24 16:20 Blood Pressure 123/75 03/23/24 16:20 O2 Saturation 100 03/23/24 16:20 Temperature 98.6 F 03/23/24 19:45 Heart Rate 92 03/23/24 16:20 Respiratory Rate 17 03/23/24 16:20 Blood Pressure 123/75 03/23/24 16:20 O2 Saturation 100 03/23/24 16:20 If not protocol: Oxygen Flow, liters/minute - Procedures OB Procedure Performed: NST Diagnosis/Indication for NST: Pre- Hypertension NST Procedure: NST Procedure Start Time 12:20 Stop Time 12:48 Service Date of procedure: 03/23/24 (Read 03/23/24) - Plan Plan: Patient is a 28-year-old -0-4-4 at 36 weeks 3 days gestation here for NST. FHT: 150 bpm baseline, moderate variability, accelerations present, no decelerations. Reactive NST [place]: Irritable Diagnosis 36 weeks gestation Chronic hypertension -Tracing is hard to maintain with the fetus frequently coming off monitoring but overall reassuring, but could not definitively trace accelerations until the end. Due to the extent of monitoring required, had a BPP that was 8/8. Reassuring and patient was sent home. Continue with scheduled OB care
--- NOTE | 2024-03-23 21:15 | Ultrasound Report ---
PROCEDURE: OB Biophysical Profile INDICATIONS: non reactive NST OUTSIDE/PRIOR DATING DATA: Last menstrual period (LMP): 07/12/2023. LMP-based estimated date of delivery (JF): 04/17/2024. First dating scan (date and location): 09/02/2023. Estimated date of delivery (JF) from first dating scan: 04/17/2024. TECHNIQUE: Real-time scanning was performed of the fetus, with image documentation and biometric sheryl surements. Biophysical profile was also obtained. COMPARISON: March 16, 2024 FINDINGS: General: A single living intrauterine gestation is present. Presentation: Vertex Placenta: Placental position is anterior, without previa. Amniotic fluid index: 13.8 cm, normal for gestational age. heart rate: 143 beats per minute. Maternal cervical canal: Closed Estimated gestational age is 36 weeks and 3 days. Biophysical profile: Tone: 2 points. Movement: 2 points. Respiration: 2 points. Largest pocket of fluid: 2 points. IMPRESSION: BPP is 8 out of 8. Living intrauterine gestation in vertex presentation. Normal SOURAV. Reviewed by: Collin Meyer MD on 03/23/2024 9:13 PM PDT Approved by: Collin Meyer MD on 03/23/2024 9:13 PM PDT Station ID: [id number]
== END 2024-03-23 19:45 | disposition home or self-care (01) ==
LOC: WFO 16:11 → FBP 16:12 → WFO 19:45
PROVIDERS: ATTEND Obstetrics & Gynecology
DX: O10.913 Unspecified pre-existing hypertension complicating pregnancy, third trimester (principal); Z3A.36 36 weeks gestation of pregnancy
CPT/HCPCS: 59025; 99213

== ENCOUNTER 2024-03-27 11:46 | Outpatient (CLI) | payer OTHER, MEDICAID ==
--- NOTE | 2024-03-27 12:18 | PROCEDURE REPORT ---
- HPI Diagnosis/Indication for NST: Gestational Hypertension Current EDU 04/17/24 Gestation 37 Weeks and 0 Days 9 Para 4 Vital Signs Temperature 98.4 F 03/27/24 11:45 Heart Rate 101 H 03/27/24 11:45 Respiratory Rate 18 03/27/24 11:45 Blood Pressure 130/79 03/27/24 11:45 Temperature 98.4 F 03/27/24 11:57 Heart Rate 101 H 03/27/24 11:57 Respiratory Rate 18 03/27/24 11:57 Blood Pressure 130/79 03/27/24 11:57 O2 Saturation If not protocol: Oxygen Flow, liters/minute - NST Procedure NST Procedure Start Time 18:18 Stop Time 18:44 - Results and Plan Plan: Patient is a 28-year-old -0-4-4 at 37 weeks gestation here for NST. NST Performed 03/27/2024 NST Read 03/27/2024 FHT: 135 bpm baseline, moderate variability, accelerations present, no decelerations. Reactive NST [place]: Irregular Diagnosis 37 weeks gestation Chronic hypertension Continue with scheduled OB care
[2024-03-27 12:19] VITALS: BP 130/79
== END 2024-03-27 11:50 | disposition home or self-care (01) ==
LOC: WFO 11:46 → FBP 11:48 → WFO 11:50
PROVIDERS: ATTEND Obstetrics & Gynecology
DX: O13.3 Gestational [pregnancy-induced] hypertension without significant proteinuria, third trimester (principal); Z3A.37 37 weeks gestation of pregnancy
CPT/HCPCS: 36415; 59025; 80053; 82570; 84156; 85027

== ENCOUNTER 2024-03-27 13:30 | Outpatient (CLI) | payer OTHER, MEDICAID ==
[2024-03-27 13:40] LABS: HCT - HEMATOCRIT 31.1 % (37.0-47.0); HGB - HEMOGLOBIN 9.8 g/dL (12.0-16.0); MEAN CORPUSCULAR HEMOGLOBIN 26.3 pg (27.0-31.0); MEAN CORPUSCULAR HGB CONC 31.5 g/dL (32.0-36.0); MEAN CORPUSCULAR VOLUME 83.4 fL (81.0-99.0); MEAN PLATELET VOLUME 11.2 fL (7.9-10.8); RED BLOOD COUNT 3.73 10^6/uL (4.20-5.40); RED CELL DISTRIBUTION WIDTH 15.6 % (12.0-15.0); WHITE BLOOD COUNT 4.5 x10^3/uL (4.8-10.8)
[2024-03-27 13:57] LABS: CREATININE,URINE 93.5 mg/dL; PROTEIN/CREATININE RATIO,URINE 0.1 (<=0.2)
[2024-03-27 13:59] LABS: ALBUMIN 3.6 g/dL (3.2-5.5); ALBUMIN/GLOBULIN RATIO 1.3 (1.0-2.2); BILIRUBIN,TOTAL 0.5 mg/dL (0.2-1.0); CALCIUM 9.2 mg/dL (8.5-10.3); CREATININE 0.5 mg/dL (0.6-1.3); POTASSIUM 3.6 mmol/L (3.5-4.5); TOTAL PROTEIN 6.4 g/dL (6.4-8.9)
== END 2024-03-27 13:31 | disposition home or self-care (01) ==
LOC: LAB 13:30
PROVIDERS: ATTEND Obstetrics & Gynecology
DX: O16.9 Unspecified maternal hypertension, unspecified trimester (principal)
CPT/HCPCS: 36415; 80053; 82570; 84156; 85027

== ENCOUNTER 2024-03-30 12:05 | Outpatient (CLI) | payer OTHER, MEDICAID ==
--- NOTE | 2024-03-31 19:26 | Ultrasound Report ---
PROCEDURE: OB Limited INDICATIONS: HYPERTENSION OUTSIDE/PRIOR DATING DATA: Last menstrual period (LMP): 07/12/2023. LMP-based estimated date of delivery (JF): 04/17/2024. First dating scan (date and location): 09/02/2023. Estimated date of delivery (JF) from first dating scan: 04/17/2024. The below data below was generated using the working JF of 04/17/2024 TECHNIQUE: Real-time scanning was performed of the fetus, with image documentation. Endovaginal scanning: Not performed COMPARISON: 03/16/2024, 03/23/2024, 03/09/2024 and 03/02/2024 FINDINGS: A single living intrauterine gestation is present. Presentation: Vertex Placenta: Placental position is anterior, without previa. Amniotic fluid index: 9.0 cm, normal for gestational age. heart rate: 148 beats per minutes. Maternal cervical canal: Not evaluated. Estimated gestational age from initial scan: 37 weeks, 3 days.. Incidentally noted of nuchal cord. IMPRESSION: 1. Single live intrauterine gestation with fetus in vertex presentation. heart rate is 148 bpm. Normal SOURAV at 9.0 cm. 2. Nuchal cord. Reviewed by: Joel Connolly MD on 03/31/2024 7:25 PM PDT Approved by: Joel Connolly MD on 03/31/2024 7:25 PM PDT Station ID: [id number]
== END 2024-03-30 12:06 | disposition home or self-care (01) ==
LOC: DI 12:05
PROVIDERS: ATTEND Obstetrics & Gynecology
DX: O16.9 Unspecified maternal hypertension, unspecified trimester (principal); Z3A.37 37 weeks gestation of pregnancy

== ENCOUNTER 2024-03-30 13:00 | Outpatient (CLI) | payer OTHER, MEDICAID ==
[2024-03-30 13:42] VITALS: BP 101/56
--- NOTE | 2024-03-30 18:54 | PROCEDURE REPORT ---
- HPI Diagnosis/Indication for NST: Pre- Hypertension Current EDU 04/17/24 Gestation 37 Weeks and 3 Days 9 Para 4 Vital Signs Temperature 98.2 F 03/30/24 13:29 Heart Rate 64 03/30/24 13:29 Respiratory Rate 18 03/30/24 13:29 Blood Pressure 101/56 L 03/30/24 13:29 Temperature 98.2 F 03/30/24 13:29 Heart Rate 64 03/30/24 13:29 Respiratory Rate 18 03/30/24 13:29 Blood Pressure 101/56 L 03/30/24 13:29 O2 Saturation If not protocol: Oxygen Flow, liters/minute - NST Procedure NST Procedure Start Date 03/30/24 Start Time 13:10 Stop Time 13:55 Vibroacoustic Stimulation Used No Patient States Movement Yes - Results and Plan Findings/Impression: Reactive, Cat 1 Plan: Follow up as scheduled.
== END 2024-03-30 13:57 | disposition home or self-care (01) ==
LOC: WFO 13:00 → FBP 13:03 → WFO 13:57
PROVIDERS: ATTEND Obstetrics & Gynecology
DX: O10.913 Unspecified pre-existing hypertension complicating pregnancy, third trimester (principal); Z3A.37 37 weeks gestation of pregnancy
CPT/HCPCS: 59025

== ENCOUNTER 2024-04-02 21:23 | Inpatient (IN) | payer OTHER, MEDICAID ==
[2024-04-02] MEDS ORDERED: OXYTOCIN 10 UNIT/ML VIAL ONE (21:42)
[2024-04-02] MEDS ORDERED: OXYTOCIN/SODIUM CHLORIDE 500 ML IV ONE (21:42)
[2024-04-02] MEDS ORDERED: miSOPROStoL 200 MCG TABLET ONE (21:42)
[2024-04-02] MEDS ORDERED: LACTATED RINGERS 1,000 ML ONE (21:42)
[2024-04-02] MEDS ORDERED: TRANEXAMIC ACID IN NACL 1,000 MG/100 ML BAG IV PRN (21:48)
[2024-04-02] MEDS ORDERED: SODIUM CHLORIDE FLUSH 0.9% 10 ML SYRINGE IVP PRN (21:48)
[2024-04-02] MEDS ORDERED: TERBUTALINE 1 MG/ML VIAL SUBQ PRN (21:48)
[2024-04-02] MEDS ORDERED: lidocaine 1% 20 ML MDV ID PRN (21:48)
[2024-04-02] MEDS ORDERED: CARBOPROST TROMETHAMINE 250 MCG/ML VIAL IM PRN (21:48)
[2024-04-02] MEDS ORDERED: LABETALOL 20 MG/4 ML SYRINGE IVP PRN ×3 (21:48)
[2024-04-02] MEDS ORDERED: miSOPROStoL 200 MCG TABLET BC PRN (21:48)
[2024-04-02] MEDS ORDERED: NIFEdipine 10 MG CAPSULE PO PRN (21:48)
[2024-04-02] MEDS ORDERED: OXYTOCIN 10 UNIT/ML VIAL IM PRN (21:48)
[2024-04-02] MEDS ORDERED: fentaNYL 100 MCG/2 ML VIAL IVP PRN (21:48)
[2024-04-02] MEDS ORDERED: METHYLERGONOVINE 0.2 MG/ML VIAL IM PRN (21:48)
[2024-04-02] MEDS ORDERED: hydrALAZINE INJ 20 MG/ML VIAL IVP PRN ×2 (21:48)
[2024-04-02] MEDS ORDERED: LACTATED RINGERS 1,000 ML IV PRN (21:48)
[2024-04-02] MEDS ORDERED: miSOPROStoL 200 MCG TABLET PR PRN (21:48)
[2024-04-02] MEDS: OXYTOCIN/SODIUM CHLORIDE 500 ML IV PRN (21:55)
[2024-04-02] MEDS ORDERED: LACTATED RINGERS 1,000 ML IV SCH ×2 (22:00→23:00)
--- NOTE | 2024-04-02 22:07 | HISTORY & PHYSICAL EXAMINATION ---
Admit History - Visit Reason Visit Reason: Contractions - Smoking Status: Never smoker - Mother's Labs Mother's Blood Type: positive: B Mother's RH: positive: Positive GBS: positive: Group B Step Negative Rubella Status: positive: Immune - Other Maternal History Other Maternal History: HPI: 28-year-old -0-4-4 at 37 weeks 6 days gestation presented today with contractions. The started around 7:00 but became more intense. HPI limited due to imminent delivery. Course LMP: 07/12/2023 JF by LMP: 04/17/2024 US:09/02/2023 7w3d c/w LMP Final JF: 04/17/2024 Problems: Chronic hypertension: Previously on diltiazem. Currently on labetalol 100 mg twice daily. Baseline labs normal History of preeclampsia with severe features: Induction @39wks, here, for elevated BP, Readmitted for preeclampsia with severe features Ultrasound 02/24/2024: 2044 g, 51st percentile EFW 36 weeks : 3190 g, 93rd percentile. surveillance started at 32 weeks Sleeve gastrectomy - vitamin labs ordered 01/24/24 -Low vitamin D, Ferritin. Supplementing A1 GDM : Early 1 hour GTT ordered. 150 3hr 91/193/143/49. Has not been checking sugars. Iron deficiency anemia -Start iron supplementation and infusions -Recheck CBC today Heartburn: Taking famotidine 1-2 times per day. LSIL PAP 2020 Pre- Weight: 250 BMI: 41.89 Blood type: B+ Antibody: negative CBC: 10.7/32.2 220 RUB:Imm VZV:Imm HBsAg: Neg HepC: NR RPR/AB-EIA: NR HIV: NR PAP: 09/30/2023- NILM GC/CT:09/20/23-Negative HSV: Denies in self and partner Genetic testing:[id number]- Negative AFP-Did not have drawn Covid: all, but spikevax Flu:10/12/23 at PCP office. They also gave her a Tdap FAS:11/16/2023 Placenta: anterior Cord: 3VC SOURAV: 12.3cm EFW: 283g; 97th %tile 50gm OGCT: 150 3HR GTT: 91/193/143/49 TDAP:given too early at PCP. give again at 27weeks per Dr. Bernal -01/23 GIVEN Breast Pump:01/23 3rd trimester H/H PLT ordered 01/23 SILVERIO plt 174 hgb 8.9 hct 28.1 GBS: Negative Delivery plan: Induction of labor at 39 weeks on 04/11/2024 Contraception: BTLpapers signed (01/23) vs vasectomy PMH depression Hypertension ADHD History of preeclampsia severe features History of gestational diabetes PSH Sleeve gastrectomy: 2017 OB History -0-4-4 1. 08/09/2014, 36 weeks gestation , female, 7 pounds 8 ounces, PPPROM, preeclampsia with severe features, magnesium sulfate 2. 9 weeks, EAB 3. 08/03/2016, 39 weeks, , male, 7 pounds 4. 02/2018, 9 weeks, EAB 5. 10/30/2018, 12 weeks, SAB 6. 10/29/2019, 39 weeks, , male, 7 pounds, elevated blood pressure after delivery 7. 03/04/2021, 6 weeks, SAB 8. 01/03/2022, 39 weeks, , female, 3928 g, induction of labor SH Denies tobacco, alcohol, drugs Family History Mother: Diabetes, hypertension Sister: Diabetes Allergies No known drug allergies Medications Famotidine 20 mg twice daily Colace 100 mg twice daily Cholecalciferol 5000 IU daily Aspirin 81 mg daily vitamins Labetalol 100 mg twice daily Ferrous sulfate 325 mg daily Physical exam: General: Alert, oriented, no acute distress Head: Normal cephalic atraumatic Eyes: PERRLA, extraocular motions intact. Respiratory: Normal rate of respiration. No accessory muscle use, normal respiratory effort. Cardiovascular: Regular rate and rhythm Abdomen: Gravid, nontender, nondistended Extremities: Normal range of motion Neuro: Oriented x3. Normal movements Psych: Appropriate mood and affect. Normal judgment and insight SVE: 10/100/0 FHT: 145 bpm, but not consistent heart tones. [place]: every 2 minutes Assessment and plan 28-year-old -0-4-4 37 weeks 6 days gestation term labor Term labor -Admit to L&D, admit labs -Likely no time for epidural -See delivery note for detail of this precipitous delivery 37 weeks gestation Chronic hypertension -Continue labetalol as needed -CBC, CMP pending GDM, A1 managed with diet -Will need 2-hour GTT History of preeclampsia with severe features - NST Procedure NST Procedure Start Time 13:10 Stop Time 13:55 Meds/Allgy - Home Medications Home Medications: Ambulatory Orders Medication Instructions Recorded Confirmed Aspirin EC [Ecotrin] 81 mg PO DAILY 02/29/24 02/29/24 Labetalol [Trandate] 100 mg PO BID 02/29/24 02/29/24 Pnv No.95/Ferrous Fum/Folic AC 1 cap PO DAILY 02/29/24 02/29/24 [ Cap[place]] - Allergies Allergies/Adverse Reactions: Allergies Allergy/AdvReac Type Severity Reaction Status Date / Time No Known Drug Allergies Allergy Verified 02/29/24 14:05 Plan for Labor - Plan For Labor I expect patient to be DC'd or transferred within 96 hours.: Yes
[2024-04-02] MEDS ORDERED: ONDANSETRON 4 MG/2 ML VIAL IVP PRN (22:08)
[2024-04-02] MEDS ORDERED: SIMETHICONE CHEW 80 MG TABLET PO PRN (22:08)
--- NOTE | 2024-04-02 22:12 | DELIVERY NOTE ---
Delivery Note - Labor Labor: positive: Spontaneous - Delivery Method Delivery Method: positive: Spontaneous vaginal delivery - Presentation Presentation: positive: Vertex - Nuchal Cord Nuchal Cord: positive: None - Anesthetic Anesthetic Type: - Amniotic Fluid Description Amniotic Fluid Description: positive: Clear - Episiotomy Type Episiotomy Type: positive: None - Laceration Laceration: positive: 1st degree - [place]: positive: Placed in direct skin contact with mother sex: positive: Male - Cord Cord: positive: 3 vessels - Placenta Placenta: positive: Intact - Estimated Blood Loss Estimated Blood Loss (in cc): 150 - Post Delivery Events Post Delivery Events: positive: No post delivery events - Delivery Comments (Free Text/Narrative) Delivery Comments (Free Text/Narrative): Preoperative Diagnoses 37 weeks gestation Term labor Chronic hypertension A1 GDM History of sleeve gastrectomy Iron deficiency anemia Postoperative Diagnoses Same Precipitous delivery Delivery of live aparicio Status post spontaneous vaginal delivery Summary Patient was a 28-year-old -0-4-4 at 37 weeks 6 days gestation who presented today in active labor. Upon arrival she was evette regularly and was checked and found to be 9 cm. Provider was called to bedside and as I checked, I could feel no cervix, as she was progressing rapidly and would likely not be able to receive an epidural so I offered amniotomy to finish labor which she accepted. There is a moderate amount of clear fluid. At that time, she felt an intense urge to push. Delivery Summary: Patient was placed in the dorsal lithotomy position. Upon maternal pushing the head was delivered atraumatically followed by the anterior shoulder, posterior shoulder, then the remainder of the 's body. A male infant was delivered with APGARS of 9 at 1 minute and 9 at 5 minutes. The infant was placed on its mother's chest . After the cord finished pulsating, the umbilical cord was clamped times two and cut. The placenta delivered intact with three vessel cord. Placenta was not sent to pathology. Thirty units of Pitocin were added to the IV fluid and allowed to run freely. Uterine massage was performed until uterus was deemed firm. Upon inspection of the perineum, a small first-degree midline laceration was noted, but was hemostatic. Uterus again massaged and found to be firm. Needle and sponge counts were correct. Patient was stable and allowed to recover in L&D room. Infant was stable and remained in room with mother. weight is pending at this time.
[2024-04-02] MEDS: IBUPROFEN 600 MG TABLET PO SCH (23:03)
[2024-04-02] MEDS: ACETAMINOPHEN 500 MG TABLET PO SCH (23:03)
[2024-04-03 00:06] LABS: BASOPHILS % (AUTO) 0.4 %; EOSINOPHILS % (AUTO) 0.5 %; HCT - HEMATOCRIT 32.2 % (37.0-47.0); HGB - HEMOGLOBIN 10.3 g/dL (12.0-16.0); LYMPHOCYTES # (AUTO) 1.7 10^3/uL (1.5-3.5); LYMPHOCYTES % (AUTO) 30.7 %; MEAN CORPUSCULAR HEMOGLOBIN 26.1 pg (27.0-31.0); MEAN CORPUSCULAR VOLUME 81.7 fL (81.0-99.0); MEAN PLATELET VOLUME 12.5 fL (7.9-10.8); MONOCYTES # (AUTO) 0.6 10^3/uL (0.0-1.0); MONOCYTES % (AUTO) 10.9 %; NEUTROPHILS # (AUTO) 3.2 10^3/uL (1.5-6.6); NEUTROPHILS % (AUTO) 57.1 %; PLT - PLATELET COUNT 185 10^3/uL (130-450); RED BLOOD COUNT 3.94 10^6/uL (4.20-5.40); RED CELL DISTRIBUTION WIDTH 15.8 % (12.0-15.0); WHITE BLOOD COUNT 5.5 x10^3/uL (4.8-10.8)
[2024-04-03] MEDS: LABETALOL 100 MG TABLET PO SCH (08:31)
[2024-04-03 08:58] VITALS: O2SAT 99
--- NOTE | 2024-04-03 11:05 | PHARMACY PROGRESS NOTE ---
- Best Possible Medication History Admit Date and Time: 04/02/24 2148 Processed by: Pharmacy Medications reviewed in ED?: No Medication History completed: Yes Patient Interview: Completed Secondary Source(s): Insurance records As the person ultimately responsible for medication therapy, providers are able to order a medication from an existing home medication list in [facility] via the "Reconcile Routine" prior to Confirmation of that medication by network support manager. Such practice is discouraged except when the physician, in their clinical judgment, deems that a medical need exists for a medication without regard to previous use.
[2024-04-03 12:28] LABS: BASOPHILS % (AUTO) 0.3 %; EOSINOPHILS # (AUTO) 0.1 10^3/uL (0.0-0.7); EOSINOPHILS % (AUTO) 0.8 %; HCT - HEMATOCRIT 31.2 % (37.0-47.0); HGB - HEMOGLOBIN 9.9 g/dL (12.0-16.0); LYMPHOCYTES # (AUTO) 1.9 10^3/uL (1.5-3.5); LYMPHOCYTES % (AUTO) 25.4 %; MEAN CORPUSCULAR HEMOGLOBIN 26.3 pg (27.0-31.0); MEAN CORPUSCULAR HGB CONC 31.7 g/dL (32.0-36.0); MEAN PLATELET VOLUME 11.7 fL (7.9-10.8); MONOCYTES # (AUTO) 0.6 10^3/uL (0.0-1.0); MONOCYTES % (AUTO) 7.8 %; NEUTROPHILS # (AUTO) 4.8 10^3/uL (1.5-6.6); NEUTROPHILS % (AUTO) 65.4 %; PLT - PLATELET COUNT 153 10^3/uL (130-450); RED BLOOD COUNT 3.76 10^6/uL (4.20-5.40); RED CELL DISTRIBUTION WIDTH 15.7 % (12.0-15.0); WHITE BLOOD COUNT 7.3 x10^3/uL (4.8-10.8)
--- NOTE | 2024-04-03 12:28 | PROVIDER PROGRESS NOTE ---
Subjective - Prog Note Date Prog Note Date: 04/03/24 Prog Note Time: 12:25 - Subjective Subjective: Deborah is feeling well. Pain is well controlled. She is urinating and ambulating without difficulty. Tolerating regular diet. Lochia appropriate. She is . Objective - Vital Signs/Intake & Output Vital Signs: Vital Signs x48h Temp Pulse Resp BP Pulse Ox 04/03/24 08:54 97.9 F 80 16 120/94 H 99 04/03/24 04:42 98.4 F 60 16 132/81 H 97 Intake & Output: Intake & Output 03/31/24 04/01/24 04/02/24 04/03/24 23:59 23:59 23:59 23:59 Intake Total 500 200 Output Total 300 Balance 500 -100 - Objective General Appearance: positive: No acute distress Respiratory: positive: No respiratory distress Abdomen: positive: Non-tender, Other (Fundus firm.) Extremities: positive: No pedal edema - Lab Results Fish Bones: 04/03/24 00:00 Other Labs: Lab Results x24hrs 04/03/24 04/02/24 Range/Units 00:00 21:45 WBC 5.5 (4.8-10.8) x10^3/uL RBC 3.94 L (4.20-5.40) 10^6/uL Hgb 10.3 L (12.0-16.0) g/dL Hct 32.2 L (37.0-47.0) % MCV 81.7 (81.0-99.0) fL MCH 26.1 L (27.0-31.0) pg MCHC 32.0 (32.0-36.0) g/dL RDW 15.8 H (12.0-15.0) % Plt Count 185 (130-450) 10^3/uL MPV 12.5 H (7.9-10.8) fL Neut # (Auto) 3.2 (1.5-6.6) 10^3/uL Lymph # (Auto) 1.7 (1.5-3.5) 10^3/uL [place] # (Auto) 0.6 (0.0-1.0) 10^3/uL Eos # (Auto) 0.0 (0.0-0.7) 10^3/uL Baso # (Auto) 0.0 (0.0-0.1) 10^3/uL Absolute Nucleated RBC 0.00 x10^3/uL Nucleated RBC % 0.0 /100WBC Blood Type B POSITIVE Antibody Screen NEGATIVE Assessment/Plan - Problem List (1) (spontaneous vaginal delivery) Impression: Continue routine care. (2) Chronic hypertension affecting Impression: Continue labetalol 100mg BID. CBC, CMP ordered for today (CMP not collected on admission). Anticipate discharge home tomorrow.
[2024-04-03 12:41] LABS: ALBUMIN 3.4 g/dL (3.2-5.5); ALBUMIN/GLOBULIN RATIO 1.4 (1.0-2.2); BILIRUBIN,TOTAL 0.4 mg/dL (0.2-1.0); CALCIUM 9.4 mg/dL (8.5-10.3); CREATININE 0.6 mg/dL (0.6-1.3); POTASSIUM 3.9 mmol/L (3.5-4.5); TOTAL PROTEIN 5.9 g/dL (6.4-8.9)
[2024-04-03] MEDS: DOCUSATE SODIUM 100 MG CAPSULE PO PRN (22:06)
[2024-04-04] MEDS: CALCIUM CARBONATE CHEW 500 MG TABLET PO PRN (03:37)
[2024-04-04] MEDS: LABETALOL 100 MG TABLET PO SCH (09:01)
[2024-04-04 12:36] VITALS: BP 129/66
--- NOTE | 2024-04-04 17:58 | Labor Flowsheet ---
Labor Flowsheet Datetime Report Generated by CPN: 04/04/2024 17:58 Datetime: 04/04/2024 12:24 VITAL SIGNS NBP Sys/Ember/Mean (mmHg): 129 : 88 : 98 Pulse: 69 Datetime: 04/03/2024 00:20 Stage of : Respirations: 16 Pain Presence: Intermittent Pain Type: Cramping Pain Location: Abdomen Pain Goal: 3 Pain Relief Measures: Pain Medication Given Datetime: 04/02/2024 23:15 PAIN Pain Scale: 4 Datetime: 04/02/2024 22:30 Temperature (C): 36.8 Temperature Route: Oral Datetime: 04/02/2024 22:16 VAGINAL EXAM Membranes Ruptured Date/Time: 04/02/2024 21:51 Membranes Rupture Method: Artificial Amniotic Fluid Color: Clear Amniotic Fluid Amount: Moderate Datetime: 04/02/2024 21:57 STAGE 2 Stage 2 Comments: precipitous delivery Datetime: 03/23/2024 18:39 SpO2 (%): 100 Datetime: 03/16/2024 13:20 ASSESSMENT A Monitor Interventions for FHR: Ultrasound Adjusted Comments: RN at bedside, EFM adjusted
--- NOTE | 2024-04-04 19:14 | DISCHARGE SUMMARY ---
"Discharge Summary Admit Date: 04/02/24 Discharge Date: 04/04/24 Discharging Provider: Agueda Nelson MD Code Status: Attempt Resuscitation Condition at Discharge: Good - DIAGNOSES Admission Diagnoses: term labor Discharge Diagnoses with Status of Each Condition: normal labor and delivery. no complications chronic hypertension on labetolol 100 mg bid at time of admit. some elevations during hospital stay but mostly in range. - HPI History of Present Illness: presents in active labor. c/b htn. - CONSULTS | PROCEDURES Procedures: vaginal delivery - HOSPITAL COURSE Hospital Course: presented 9 cm. vaginal delivery shortly after arrival. pp course unremarkable. bp elevated and treated with an extra 100 mg of labetolol so this am had 200 mg. sent home with flex dosing instructions. - ALLERGIES Allergies/Adverse Reactions: Allergies Allergy/AdvReac Type Severity Reaction Status Date / Time No Known Drug Allergies Allergy Verified 02/29/24 14:05 - MEDICATIONS Home Medications: Ambulatory Orders Medication Instructions Recorded Confirmed Labetalol [Trandate] 100 mg PO BID 02/29/24 04/03/24 Docusate Sodium 100Mg Capsule 100 mg PO BID 04/03/24 04/03/24 [Colace 100Mg Capsule] Famotidine [Acid-Pep] 20 mg PO BID 04/03/24 04/03/24 - PHYSICAL EXAM AT DISCHARGE General Appearance: positive: No acute distress Respiratory: positive: No respiratory distress Cardiovascular: positive: Regular rate & rhythm Abdomen: positive: Non-tender Extremities: positive: No pedal edema - LABS Result Diagrams: 04/03/24 12:19 04/03/24 12:19 - FOLLOW UP Follow Up: 1 week for pp bp check - TIME SPENT Time Spent in Discharge (Minutes): 30"
== END 2024-04-04 14:40 | disposition home or self-care (01) | DRG 807 ==
LOC: WFO 21:23 → FBP 21:23 → WFO 21:47 → FBP 21:48
PROVIDERS: ADMIT Obstetrics & Gynecology; ATTEND Obstetrics & Gynecology
PROC: 10E0XZZ Delivery of Products of Conception, External Approach (ICD-10-PCS; principal; 2024-04-02)
DX: O16.4 Unspecified maternal hypertension, complicating childbirth (principal); Z37.0 Single live birth; Z3A.37 37 weeks gestation of pregnancy; O10.92 Unspecified pre-existing hypertension complicating childbirth; O24.420 Gestational diabetes mellitus in childbirth, diet controlled; O99.02 Anemia complicating childbirth; D50.9 Iron deficiency anemia, unspecified; O70.0 First degree perineal laceration during delivery; Z79.82 Long term (current) use of aspirin; Z79.899 Other long term (current) drug therapy; Z87.59 Personal history of other complications of pregnancy, childbirth and the puerperium
CPT/HCPCS: 36415; 59409; 80053; 85025; 86850; 86900; 86901; A9270; J7120

== ENCOUNTER 2024-06-06 09:16 | Day surgery (SDC) | payer OTHER, MEDICAID ==
[2024-06-06] MEDS: LACTATED RINGERS 1,000 ML IV ONE ×2 (09:31→13:20)
[2024-06-06 09:44] LABS: HCG UR QUAL NEGATIVE
[2024-06-06 10:17] LABS: BASOPHILS % (AUTO) 0.9 %; EOSINOPHILS # (AUTO) 0.1 10^3/uL (0.0-0.7); EOSINOPHILS % (AUTO) 3.2 %; HCT - HEMATOCRIT 33.7 % (37.0-47.0); HGB - HEMOGLOBIN 10.8 g/dL (12.0-16.0); LYMPHOCYTES # (AUTO) 1.5 10^3/uL (1.5-3.5); LYMPHOCYTES % (AUTO) 44.2 %; MEAN CORPUSCULAR HEMOGLOBIN 26.4 pg (27.0-31.0); MEAN CORPUSCULAR VOLUME 82.4 fL (81.0-99.0); MEAN PLATELET VOLUME 12.2 fL (7.9-10.8); MONOCYTES # (AUTO) 0.3 10^3/uL (0.0-1.0); NEUTROPHILS # (AUTO) 1.5 10^3/uL (1.5-6.6); NEUTROPHILS % (AUTO) 42.4 %; PLT - PLATELET COUNT 228 10^3/uL (130-450); RED BLOOD COUNT 4.09 10^6/uL (4.20-5.40); RED CELL DISTRIBUTION WIDTH 14.4 % (12.0-15.0); WHITE BLOOD COUNT 3.5 x10^3/uL (4.8-10.8)
--- NOTE | 2024-06-06 10:58 | ANESTHESIA ---
Pre-Anesthesia VS, & Labs - Diagnosis desires sterilization - Procedure B laproscopic salpingectomy Vital Signs: Temp Pulse Resp BP Pulse Ox O2 Flow Rate 36.5 C 58 L 14 125/81 H 99 06/06/24 09:36 06/06/24 09:36 06/06/24 09:36 06/06/24 09:36 06/06/24 09:36 Height: 5 ft 5 in Weight (kg): 117.1 kg Body Mass Index: 43.0 BMI Classification: Morbidly Obese - NPO >8 hours - Is Patient ?: No - Lab Results Current Lab Results: Laboratory Tests 06/06/24 10:04: WBC 3.5 L, RBC 4.09 L, Hgb 10.8 L, Hct 33.7 L, MCV 82.4, MCH 26.4 L, MCHC 32.0, RDW 14.4, Plt Count 228, MPV 12.2 H, Neut # (Auto) 1.5, Lymph # (Auto) 1.5, [place] # (Auto) 0.3, Eos # (Auto) 0.1, Baso # (Auto) 0.0, Absolute Nucleated RBC 0.00, Nucleated RBC % 0.0 Fish Bones: 06/06/24 10:04 Home Medications and Allergies Labetalol [Trandate] 100 mg PO BID 02/29/24 Famotidine [Acid-Pep] 20 mg PO BID 04/03/24 Allergies/Adverse Reactions: Allergies Allergy/AdvReac Type Severity Reaction Status Date / Time No Known Drug Allergies Allergy Verified 02/29/24 14:05 Anes History & Medical History - Anesthetic History Anesthesia Complications: reports: No previous complications Family history of Anesthesia Complications: Denies Family history of Malignant Hyperthermia: Denies - Medical History Cardiovascular: reports: Hypertension Pulmonary: reports: None Gastrointestinal: reports: GERD Urinary: reports: None Neuro: reports: None Musculoskeletal: reports: None Endocrine/Autoimmune: reports: None Blood Disorders: reports: Anemia Skin: reports: None Smoking Status: Never smoker Psychosocial: reports: No issues indicated History of Cancer?: No - Surgical History General: reports: Gastric surgery, EGD Exam General: Alert, Oriented x3, Cooperative Dental: WNL Mouth Openin Fingerbreadth Neck Mobility: Normal Mallampati classification: III Thyromental Distance: 4-6 cm Respiratory: Lungs clear Cardiovascular: Regular rate Plan Anesthesia Type: General Consent for Procedure(s) Verified and Reviewed: Yes Code Status: Attempt Resuscitation ASA classification: 2-Mild systemic disease Is this case an emergency?: No
[2024-06-06] MEDS ORDERED: fentaNYL 100 MCG/2 ML VIAL IVP PRN (11:00)
[2024-06-06] MEDS ORDERED: ATROPINE ABBOJECT 1 MG/10 ML SYRINGE IVP PRN (11:00)
[2024-06-06] MEDS ORDERED: METOCLOPRAMIDE 10 MG/2 ML VIAL IVP PRN (11:00)
[2024-06-06] MEDS ORDERED: MORPHINE 2 MG/ML CARPUJECT IVP PRN (11:00)
[2024-06-06] MEDS ORDERED: LACTATED RINGERS 1,000 ML IV SCH (11:00)
[2024-06-06] MEDS ORDERED: ePHEDrine 50 MG/ML VIAL IVP PRN (11:00)
[2024-06-06] MEDS ORDERED: ONDANSETRON 4 MG/2 ML VIAL IVP PRN (11:00)
[2024-06-06] MEDS ORDERED: NALOXONE 0.4 MG/ML VIAL IVP PRN (11:00)
[2024-06-06] MEDS ORDERED: LIDOCAINE-PF 2% 10 ML AMP SUBQ ONE (11:18)
[2024-06-06] MEDS ORDERED: PROPOFOL 200 MG/20 ML VIAL IVP ONE (11:18)
[2024-06-06] MEDS ORDERED: MIDAZOLAM 2 MG/2 ML VIAL ONE (11:19)
[2024-06-06] MEDS ORDERED: fentaNYL 100 MCG/2 ML VIAL ONE (11:19)
[2024-06-06] MEDS ORDERED: ROCURONIUM 50 MG/5 ML VIAL ONE (11:19)
[2024-06-06] MEDS ORDERED: LIDOCAINE 1%-EPI 1:100000 20 ML MDV ONE (11:43)
[2024-06-06] MEDS ORDERED: BUPIVACAINE 0.5% PF 10 ML VIAL ONE (11:43)
[2024-06-06] MEDS: LIDOCAINE 1%-EPI 1:100000 20 ML MDV SUBQ ONE (12:48)
[2024-06-06] MEDS: BUPIVACAINE 0.5% PF 10 ML VIAL IM ONE (12:48)
[2024-06-06] MEDS ORDERED: ONDANSETRON 4 MG/2 ML VIAL ONE (12:50)
[2024-06-06] MEDS ORDERED: DEXAMETHASONE 4 MG/ML VIAL ONE (12:50)
[2024-06-06] MEDS ORDERED: SUGAMMADEX 200 MG/2 ML VIAL IVP ONE (13:04)
[2024-06-06] MEDS ORDERED: HYDROcod/ACETAM 10 MG/325 MG TABLET PO PRN (13:09)
--- NOTE | 2024-06-06 13:11 | OPERATIVE REPORT ---
Operative Report - General Procedure Date: 06/06/24 Planned Procedure: Laparoscopic bilateral salpingectomy Pre-Op Diagnosis: Sterility desired Procedure Performed: Laparoscopic bilateral salpingectomy Post Op Diagnosis: Sterility desired - Procedure Note Primary Surgeon: Ruperto Biggs MD Secondary Surgeon: DONNA Jorge Anesthesia Provider: Josiah Shultz CRNA Anesthesia Technique: General ET tube Pathology: Bilateral fallopian tubes IV Fluids (mL): 1,000 Estimated Blood Loss (mL): 5 Urine Output (mL): 200 Findings: Normal-appearing uterus, tubes, ovaries. Healthy appearing liver and gallbladder. - Other Other Information/Narrative: Prior to surgery, we discussed the risks, alternatives, benefits to tubal ligation. We discussed long-acting control such as IUDs and implants. We had discussion about partner vasectomy and the pros and cons to this including a smaller surgery, and easier recovery. We discussed the general risk of surgery including infection, bleeding, damage to other organs, needing a larger incision. Specific to tubal ligation, we discussed the risk of regret, and discussed that regret is greater in those under 30, without children, and not in stable relationships. Patient says she is confident in her decision to not have any more children. We also discussed the risk of failure, and that less than 1/100 tubal ligation fail, but if it did, she would be at increased risk of ectopic . Patient desires to proceed with bilateral tubal ligation. Patient was taken to the OR and placed in the dorsal lithotomy position using Mikie stirrups after adequate anesthesia was obtained. Patient was prepped and draped in the usual fashion. Time out was taken. A bivalve speculum was used to visualize the cervix and a uterine manipulator was placed. 2 mL of a combination of Marcaine and lidocaine with epinephrine was used below the umbilicus. An 11 blade scalpel was used to incise the skin. Direct visual entry was used to place the infraumbilical trocar. Upon entering the peritoneal cavity, low flow was used to ensure appropriate positioning. Upon visualization of the abdominal cavity, high flow was then initiated. 2 additional trocars was placed under visualization in a similar fashion in the right and left lower quadrants. After visualization of the left fallopian tube, it was grasped with an atraumatic grasper. The mesosalpinx was cauterized and cut with a Ligasure device. Attention was then turned to the right fallopian tube which was then r emoved in a similar fashion. The abdomen was reviewed for hemostasis, and a healthy-appearing liver was noted. The trocars were then removed, and abdomen was evacuated of gas. The trocar sites were then closed with a 4-0 Monocryl in a sub-cuticular fashion and covered with Dermabond. Patient was taken to the PACU in stable condition. I appreciate the assistance of DONNA Jorge during this procedure, and the assistance in retraction, visualization, dissection, and overall assistance during the case were instrumental to the patient's wellbeing.
[2024-06-06] MEDS: HYDROmorphone 0.5 MG/0.5 ML SYRINGE IVP PRN (13:35)
[2024-06-06] MEDS ORDERED: HYDROmorphone 0.5 MG/0.5 ML SYRINGE ONE (13:37)
[2024-06-06 13:39] VITALS: O2SAT 100
--- NOTE | 2024-06-06 14:14 | ANESTHESIA POST OP EVALUATION ---
Anesthesia Post Eval - Post Anesthesia Eval Vitals: Last Vital Signs Temp 36.5 C 06/06/24 14:00 Pulse 71 06/06/24 14:00 Resp 16 06/06/24 14:00 BP 133/90 H 06/06/24 14:00 Pulse Ox 100 06/06/24 14:00 O2 Flow Rate CV Function Including HR & BP: Stable Pain Control: Satisfactory Nausea & Vomiting: Negative Mental Status: Baseline Respiratory Status: Airway Patent Hydration Status: Satisfactory Anesthesia Complications: None
[2024-06-06 14:39] VITALS: BP 136/77
[2024-06-06] MEDS: HYDROcod/ACETAM 5/325 MG TABLET PO ONE (14:47)
== END 2024-06-06 09:17 | disposition home or self-care (01) ==
LOC: SDS 09:16
PROVIDERS: ATTEND Obstetrics & Gynecology
PROC: 0UT74ZZ Resection of Bilateral Fallopian Tubes, Percutaneous Endoscopic Approach (ICD-10-PCS; principal; 2024-06-06 10:45)
DX: Z30.2 Encounter for sterilization (principal); E66.01 Morbid (severe) obesity due to excess calories; Z68.41 Body mass index [BMI] 40.0-44.9, adult; I10 Essential (primary) hypertension
CPT/HCPCS: 58661; 81025; 85025; A9270; J1170; J7120

== ENCOUNTER 2024-07-25 13:01 | Outpatient (CLI) | payer OTHER, MEDICAID ==
[2024-07-25 21:55] LABS: CHLAMYDIA TRACHOMATIS DNA NEGATIVE (NEGATIVE); NEISSERIA GONORRHOEAE DNA NEGATIVE (NEGATIVE); TRICHOMONAS VAGINALIS DNA NEGATIVE (NEGATIVE)
[2024-07-26 05:15] LABS: HIV SCREEN 4TH GENERATION Non Reactive (Non Reactive); RPR Non Reactive (Non Reactive)
[2024-07-26 06:12] LABS: HSV 2 IGG TYPE SPEC 7.64 index (0.00-0.90)
[2024-07-27 00:08] LABS: HCV AB Non Reactive (Non Reactive)
== END 2024-07-25 13:02 | disposition home or self-care (01) ==
LOC: LAB.N 13:01
PROVIDERS: ATTEND Nurse Practitioner Family
DX: Z11.3 Encounter for screening for infections with a predominantly sexual mode of transmission (principal)
CPT/HCPCS: 36415; 86592; 86695; 86696; 86803; 87389; 87491; 87591; 87661

== ENCOUNTER 2024-07-27 15:00 | Emergency (ER) | payer OTHER, MEDICAID ==
--- NOTE | 2024-07-27 15:13 | ED Physician Documentation ---
History of Present Illness - Stated complaint Stated Complaint: SI - History obtained from History obtained from: Patient, EMS - Additonal information Additional information: she sent a text to her stating she was going to jump off the bridge. Says she is not suicidal but trying to get his attention d/t relationship issues. She has never had SI and no plan. PD PAST MEDICAL HISTORY - Past Medical History Cardiovascular: Hypertension Respiratory: None Neuro: None Endocrine/Autoimmune: None GI: GERD : None HEENT: Chronic vision loss Psych: Anxiety Musculoskeletal: None Derm: None - Past Surgical History Past Surgical History: Yes General: Gastric surgery, EGD - Present Medications Home Medications: Ambulatory Orders Medication Instructions Recorded Confirmed Labetalol [Trandate] 100 mg PO BID 02/29/24 06/06/24 Famotidine [Acid-Pep] 20 mg PO BID 04/03/24 06/06/24 - Allergies Allergies/Adverse Reactions: Allergies Allergy/AdvReac Type Severity Reaction Status Date / Time No Known Drug Allergies Allergy Verified 02/29/24 14:05 - Social History Does the pt smoke?: No Smoking Status: Never smoker Does the pt drink ETOH?: No Does the pt have substance abuse?: No - Immunizations Immunizations are current?: Yes PD ED PE NORMAL - Vitals Vital signs reviewed: Yes - General General: Alert and oriented X 3 - Neuro Neuro: Alert and oriented X 3 - Psych Psych: Normal mood, Normal affect Results - Vitals Vitals: Oxygen O2 Source Room air PD Medical Decision Making - ED course ED course: Here b/c she sent a si text to and brought in by ems She has no SI and had ulterior motives to text 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 Recognize texts like you sent are taken seriously. Would recommend marriage and personal counselling.
[2024-07-27 15:47] VITALS: BP 162/109; O2SAT 100
== END 2024-07-27 15:36 | disposition home or self-care (01) ==
LOC: EDUNIT# → ED 15:00
DX: F43.20 Adjustment disorder, unspecified (principal)
CPT/HCPCS: 99281